=== PATIENT | female | born 1940 | race Caucasian/White ===

== ENCOUNTER 2020-12-30 20:10 | Inpatient (IN) | payer MEDICARE ==
--- NOTE | 2020-12-30 23:30 | Cat Scan Report ---
CT HEAD WITHOUT CONTRAST HISTORY: Weakness to BUE & BLE / neuro deficit COMPARISON: None TECHNIQUE: CT imaging of the head was performed in the axial, sagittal, and coronal projections and bone algori thm in axial projection in the soft tissue algorithm. All CT scans at this location are performed using CT dose reduction for ALARA by means of automated e xposure control. CONTRAST: None. FINDINGS: Cerebral and Cerebellar Hemispheres: Minimum atrophy left occipital lobe, previous ischemic event is suspected. No evidence of mass or mass effect. No midline shift. No acute hemorrhage. No acute cor tical infarction. No extra-axial fluid collection. Ventricles: Normal in size and configuration for age. Osseous Structures: No significant abnormality. Visualized Paranasal Sinuses: No significant abnormality. Additional Findings: None IMPRESSION: 1. No acute intracranial abnormality. NOTE: Acute infarct may not be visible by noncontrast CT. Signer Name: Ryan Alfaro MD Signed: 12/30/2020 11:26 PM Workstation Name: [id number]
[2020-12-31 00:12] LABS: Basophils # (Auto) 0.1 K/mm3 (0.0-0.1); Eosinophils # (Auto) 0.1 K/mm3 (0.0-0.4); Hematocrit 31.6 % (30.3-42.9); Hemoglobin 10.5 gm/dl (10.1-14.3); Lymphocytes # (Auto) 1.4 K/mm3 (1.2-5.4); Lymphocytes % (Auto) 14.4 % (13.4-35.0); Mean Corpuscular HGB Conc 33 % (30-34); Mean Corpuscular Volume 81 fl (79-97); Monocytes # (Auto) 0.7 K/mm3 (0.0-0.8); Monocytes % (Auto) 7.2 % (0.0-7.3); Platelet Count 371 K/mm3 (140-440); Red Cell Distribution Width 19.6 % (13.2-15.2)
[2020-12-31 00:20] LABS: INR 1.07 (0.87-1.13)
[2020-12-31 00:21] LABS: Partial Thromboplastin Time 35.2 Sec. (24.2-36.6)
[2020-12-31 00:22] LABS: Calcium 8.8 mg/dL (8.4-10.2)
[2020-12-31 00:26] LABS: Albumin 3.6 g/dL (3.9-5); Bilirubin,Direct 0.2 mg/dL (0-0.2)
--- NOTE | 2020-12-31 00:35 | XRay Report ---
CHEST 1 VIEW INDICATION: weakness COMPARISON: FINDINGS: SUPPORT DEVICES: None. HEART / MEDIASTINUM: No significant abnormality. LUNGS / PLEURA: No significant pulmonary or pleural abnormality. No pneumothorax. ADDITIONAL FINDINGS: IMPRESSION: 1. No acute cardiopulmonary disease Signer Name: Ryan Alfaro MD Signed: 12/31/2020 12:30 AM Workstation Name: [id number]
--- NOTE | 2020-12-31 00:44 | Emergency Department Report ---
ED General Adult HPI - General Chief complaint: Neuro Symptoms/Deficit Stated complaint: WEAKNESS Time Seen by Provider: 12/30/20 23:16 Source: patient Mode of arrival: Ambulatory Limitations: No Limitations - History of Present Illness Initial comments: The patient presents to the emergency department with a chief complaint of right arm and leg weakness that started 5 days ago. Patient states upon awakening 5 days ago there were not able to raise the right arm due to weakness. Patient states I am concerned that have had a stroke. Patient states that his right leg has come to the point where he is unable to walk on it due to the weakness. Patient also complains of having moments of slurred speech that has been intermittent since onset of the symptoms. Patient denies chest pain, shortness breath, or abdominal pain. -: Sudden, days(s) (5) Severity scale (0 -10): 0 Consistency: constant Improves with: none Worsens with: none Associated Symptoms: denies other symptoms Treatments Prior to Arrival: none - Related Data Allergies Allergy/AdvReac Type Severity Reaction Status Date / Time No Known Allergies Allergy Unverified 12/30/20 22:27 ED Review of Systems ROS: Stated complaint: WEAKNESS Other details as noted in HPI Comment: All other systems reviewed and negative Constitutional: denies: chills, fever Eyes: denies: eye pain, eye discharge, vision change ENT: denies: ear pain, throat pain Respiratory: denies: cough, shortness of breath, wheezing Cardiovascular: denies: chest pain, palpitations Endocrine: no symptoms reported Gastrointestinal: denies: abdominal pain, nausea, diarrhea Genitourinary: denies: urgency, dysuria, discharge Musculoskeletal: denies: back pain, joint swelling, arthralgia Skin: denies: rash, lesions Neurological: denies: headache, weakness, paresthesias Psychiatric: denies: anxiety, depression Hematological/Lymphatic: denies: easy bleeding, easy bruising ED Past Medical Hx - Past Medical History Previous Medical History?: Yes Hx Hypertension: Yes Additional medical history: glaucoma both eyes - Surgical History Past Surgical History?: No - Social History Smoking Status: Never Smoker Substance Use Type: None ED Physical Exam - General Limitations: No Limitations General appearance: alert, in no apparent distress - Head Head exam: Present: atraumatic, normocephalic - Eye Eye exam: Present: normal appearance - ENT ENT exam: Present: mucous membranes moist - Neck Neck exam: Present: normal inspection - Respiratory Respiratory exam: Present: normal lung sounds bilaterally. Absent: respiratory distress - Cardiovascular Cardiovascular Exam: Present: regular rate, normal rhythm. Absent: systolic murmur, diastolic murmur, rubs, gallop - GI/Abdominal GI/Abdominal exam: Present: soft, normal bowel sounds. Absent: distended, tenderness - Extremities Exam Extremities exam: Present: normal inspection - Back Exam Back exam: Present: normal inspection - Neurological Exam Neurological exam: Present: alert, oriented X3, other (Patient has 4 out of 5 strength of the right upper and lower extremity on exam against resistance) - Psychiatric Psychiatric exam: Present: normal affect, normal mood - Skin Skin exam: Present: warm, dry, intact, normal color. Absent: rash ED Course Vital Signs 12/30/20 22:27 Temperature 98.0 F Pulse Rate 59 L Respiratory 18 Rate Blood Pressure 137/63 O2 Sat by Pulse 100 Oximetry ED Medical Decision Making - Lab Data Result diagrams: 12/30/20 23:56 12/30/20 23:56 Lab Results 12/30/20 12/30/20 12/31/20 Range/Units 23:56 23:56 00:01 WBC 9.6 (4.5-11.0) K/mm3 RBC 3.90 (3.65-5.03) M/mm3 Hgb 10.5 (10.1-14.3) gm/dl Hct 31.6 (30.3-42.9) % MCV 81 (79-97) fl MCH 27 L (28-32) pg MCHC 33 (30-34) % RDW 19.6 H (13.2-15.2) % Plt Count 371 (140-440) K/mm3 Lymph % (Auto) 14.4 (13.4-35.0) % [place] % (Auto) 7.2 (0.0-7.3) % Eos % (Auto) 1.0 (0.0-4.3) % Baso % (Auto) 1.0 (0.0-1.8) % Lymph # (Auto) 1.4 (1.2-5.4) K/mm3 [place] # (Auto) 0.7 (0.0-0.8) K/mm3 Eos # (Auto) 0.1 (0.0-0.4) K/mm3 Baso # (Auto) 0.1 (0.0-0.1) K/mm3 Seg Neutrophils % 76.4 H (40.0-70.0) % Seg Neutrophils # 7.3 (1.8-7.7) K/mm3 PT 14.5 (12.2-14.9) Sec. INR 1.07 (0.87-1.13) APTT 35.2 (24.2-36.6) Sec. Sodium 137 (137-145) mmol/L Potassium 3.2 L (3.6-5.0) mmol/L Chloride 96.1 L (98-107) mmol/L Carbon Dioxide 28 (22-30) mmol/L Anion Gap 16 mmol/L BUN 28 H (7-17) mg/dL Creatinine 1.1 (0.6-1.2) mg/dL Estimated GFR 48 ml/min BUN/Creatinine Ratio 25 % Glucose 115 H (65-100) mg/dL Calcium 8.8 (8.4-10.2) mg/dL Phosphorus (2.5-4.5) mg/dL Magnesium (1.7-2.3) mg/dL Total Bilirubin (0.1-1.2) mg/dL Direct Bilirubin (0-0.2) mg/dL Indirect Bilirubin mg/dL AST (5-40) units/L ALT (7-56) units/L Alkaline Phosphatase (35-129) units/L Total Protein (6.3-8.2) g/dL Albumin (3.9-5) g/dL Albumin/Globulin Ratio % 12/31/ Range/Units 00:01 WBC (4.5-11.0) K/mm3 RBC (3.65-5.03) M/mm3 Hgb (10.1-14.3) gm/dl Hct (30.3-42.9) % MCV (79-97) fl MCH (28-32) pg MCHC (30-34) % RDW (13.2-15.2) % Plt Count (140-440) K/mm3 Lymph % (Auto) (13.4-35.0) % [place] % (Auto) (0.0-7.3) % Eos % (Auto) (0.0-4.3) % Baso % (Auto) (0.0-1.8) % Lymph # (Auto) (1.2-5.4) K/mm3 [place] # (Auto) (0.0-0.8) K/mm3 Eos # (Auto) (0.0-0.4) K/mm3 Baso # (Auto) (0.0-0.1) K/mm3 Seg Neutrophils % (40.0-70.0) % Seg Neutrophils # (1.8-7.7) K/mm3 PT (12.2-14.9) Sec. INR (0.87-1.13) APTT (24.2-36.6) Sec. Sodium (137-145) mmol/L Potassium (3.6-5.0) mmol/L Chloride (98-107) mmol/L Carbon Dioxide (22-30) mmol/L Anion Gap mmol/L BUN (7-17) mg/dL Creatinine (0.6-1.2) mg/dL Estimated GFR ml/min BUN/Creatinine Ratio % Glucose (65-100) mg/dL Calcium (8.4-10.2) mg/dL Phosphorus 3.30 (2.5-4.5) mg/dL Magnesium 2.00 (1.7-2.3) mg/dL Total Bilirubin 0.60 (0.1-1.2) mg/dL Direct Bilirubin 0.2 (0-0.2) mg/dL Indirect Bilirubin 0.4 mg/dL AST 33 (5-40) units/L ALT 56 (7-56) units/L Alkaline Phosphatase 233 H (35-129) units/L Total Protein 6.5 (6.3-8.2) g/dL Albumin 3.6 L (3.9-5) g/dL Albumin/Globulin Ratio 1.2 % - Radiology Data Radiology results: report reviewed - Medical Decision Making Results discussed with patient Critical care attestation.: If time is entered above; I have spent that time in minutes in the direct care of this critically ill patient, excluding procedure time. ED Disposition Clinical Impression: Right arm weakness Disposition: [id number] OP ADMIT IP TO THIS HOSP Is pt being admited?: Yes Does the pt Need Aspirin: Yes Condition: Fair Referrals: PRIMARY CARE,MD [Primary Care Provider] - 3-5 Days - Assessment Assessment Interval: Baseline - Level of Consciousness 1a. Level of Consciousness: alert/keenly responsive - LOC Questions 1b. LOC Questions: answers both correctly - LOC Command 1c. LOC Commands: performs tasks correctly - Best Gaze 2. Best Gaze: normal - Visual 3. Visual: no visual loss - Facial Palsy 4. Facial Palsy: normal symmetrical movement - Motor Arm 5a. Motor Arm Left: no drift 5b. Motor Arm Right: drift - Motor Leg 6a. Motor Leg Left: no drift 6b. Motor Leg Right: drift - Limb Ataxia 7. Limb Ataxia: present 1 limb - Sensory 8. Sensory: normal - Best Language 9. Best Language: no aphasia - Dysarthria 10. Dysarthria: normal - Extinction and Inattention 11. Extinction/Inattention: no abnormality - Scoring Total Score: 3 Stroke Severity: Minor Stroke
[2020-12-31] MEDS ORDERED: ASPIRIN 81 MG TAB CHEW PO ONE (02:00)
[2020-12-31] MEDS ORDERED: ALBUTEROL 2.5 MG/3 ML NEBU IH PRN (02:03)
[2020-12-31] MEDS ORDERED: ONDANSETRON 4 MG/2 ML INJ IV PRN (02:03)
[2020-12-31] MEDS ORDERED: ACETAMINOPHEN 325 MG TAB PO PRN (02:03)
[2020-12-31] MEDS ORDERED: hydrALAZINE 20 MG/1 ML INJ IV PRN (02:06)
--- NOTE | 2020-12-31 02:11 | History and Physical Report ---
History of Present Illness Date of examination: 12/31/20 Date of admission: 12/31/2020 Chief complaint: Right upper extremity and right leg weakness History of present illness: 80 years old female with past medical history of hypertension was brought to the emergency department with a chief complaint of right arm and leg weakness that started 5 days ago. Patient states upon awakening 5 days ago there were not able to raise the right arm due to weakness. Patient states I am concerned that have had a stroke. Patient states that his right leg has come to the point where he is unable to walk on it due to the weakness. Patient also complains of having moments of slurred speech that has been intermittent since onset of the symptoms. Patient denies chest pain, shortness breath, or abdominal pain. In the emergency room initial CT scan of the head shows no acute intracranial abnormality Past History Past Medical History: hypertension, other (Glaucoma both eyes) Medications and Allergies Allergies Allergy/AdvReac Type Severity Reaction Status Date / Time No Known Allergies Allergy Unverified 12/30/20 22:27 Review of Systems Constitutional: weakness Neurological: weakness, other (Weakness of the right upper extremity and right leg) Exam - Constitutional Vitals: Temp Pulse Resp BP Pulse Ox 98.0 F 59 L 18 137/63 100 12/30/20 22:27 12/30/20 22:27 12/30/20 22:27 12/30/20 22:27 12/30/20 22:27 General appearance: Present: no acute distress, well-nourished - EENT Eyes: Present: PERRL ENT: hearing intact, clear oral mucosa - Neck Neck: Present: supple, normal ROM - Respiratory Respiratory effort: normal Respiratory: bilateral: CTA - Cardiovascular Heart Sounds: Present: S1 & S2. Absent: rub, click - Extremities Extremities: pulses symmetrical, No edema Peripheral Pulses: within normal limits - Abdominal General gastrointestinal: Present: soft, non-tender, non-distended, normal bowel sounds Female genitourinary: Present: normal - Integumentary Integumentary: Present: clear, warm, dry - Musculoskeletal Musculoskeletal: gait normal, strength equal bilaterally - Psychiatric Psychiatric: appropriate mood/affect, intact judgment & insight - Neurologic Neurologic: CNII-XII intact, other (alert, oriented X3, other (Patient has 4 out of 5 strength of the right upper and lower extremity on exam against resistance)) Results - Labs CBC & Chem 7: 12/30/20 23:56 12/30/20 23:56 Labs: Laboratory Last Values WBC 9.6 K/mm3 (4.5-11.0) 12/30/20 23:56 RBC 3.90 M/mm3 (3.65-5.03) 12/30/20 23:56 Hgb 10.5 gm/dl (10.1-14.3) 12/30/20 23:56 Hct 31.6 % (30.3-42.9) 12/30/20 23:56 MCV 81 fl (79-97) 12/30/20 23:56 MCH 27 pg (28-32) L 12/30/20 23:56 MCHC 33 % (30-34) 12/30/20 23:56 RDW 19.6 % (13.2-15.2) H 12/30/20 23:56 Plt Count 371 K/mm3 (140-440) 12/30/20 23:56 Lymph % (Auto) 14.4 % (13.4-35.0) 12/30/20 23:56 [place] % (Auto) 7.2 % (0.0-7.3) 12/30/20 23:56 Eos % (Auto) 1.0 % (0.0-4.3) 12/30/20 23:56 Baso % (Auto) 1.0 % (0.0-1.8) 12/30/20 23:56 Lymph # (Auto) 1.4 K/mm3 (1.2-5.4) 12/30/20 23:56 [place] # (Auto) 0.7 K/mm3 (0.0-0.8) 12/30/20 23:56 Eos # (Auto) 0.1 K/mm3 (0.0-0.4) 12/30/20 23:56 Baso # (Auto) 0.1 K/mm3 (0.0-0.1) 12/30/20 23:56 Seg Neutrophils % 76.4 % (40.0-70.0) H 12/30/20 23:56 Seg Neutrophils # 7.3 K/mm3 (1.8-7.7) 12/30/20 23:56 PT 14.5 Sec. (12.2-14.9) 12/31/20 00:01 INR 1.07 (0.87-1.13) 12/31/20 00:01 APTT 35.2 Sec. (24.2-36.6) 12/31/20 00:01 Sodium 137 mmol/L (137-145) 12/30/20 23:56 Potassium 3.2 mmol/L (3.6-5.0) L 12/30/20 23:56 Chloride 96.1 mmol/L (98-107) L 12/30/20 23:56 Carbon Dioxide 28 mmol/L (22-30) 12/30/20 23:56 Anion Gap 16 mmol/L 12/30/20 23:56 BUN 28 mg/dL (7-17) H 12/30/20 23:56 Creatinine 1.1 mg/dL (0.6-1.2) 12/30/20 23:56 Estimated GFR 48 ml/min 12/30/20 23:56 BUN/Creatinine Ratio 25 % 12/30/20 23:56 Glucose 115 mg/dL (65-100) H 12/30/20 23:56 Calcium 8.8 mg/dL (8.4-10.2) 12/30/20 23:56 Phosphorus 3.30 mg/dL (2.5-4.5) 12/31/20 00:01 Magnesium 2.00 mg/dL (1.7-2.3) 12/31/20 00:01 Total Bilirubin 0.60 mg/dL (0.1-1.2) 12/31/20 00:01 Direct Bilirubin 0.2 mg/dL (0-0.2) 12/31/20 00:01 Indirect Bilirubin 0.4 mg/dL 12/31/20 00:01 AST 33 units/L (5-40) 12/31/20 00:01 ALT 56 units/L (7-56) 12/31/20 00:01 Alkaline Phosphatase 233 units/L (35-129) H 12/31/20 00:01 Total Protein 6.5 g/dL (6.3-8.2) 12/31/20 00:01 Albumin 3.6 g/dL (3.9-5) L 12/31/20 00:01 Albumin/Globulin Ratio 1.2 % 12/31/20 00:01 - Imaging and Cardiology CT Scan - head: report reviewed Assessment and Plan VTE prophylaxis?: Chemical Plan of care discussed with patient/family: Yes - Patient Problems (1) CVA (cerebral vascular accident) Current Visit: Yes Status: Acute Plan to address problem: Admit the patient to the medical telemetry. Aspirin 325 mg p.o. daily. Lipitor 40 mg p.o. nightly. MRI of the brain and MRA of the brain and neck with and without contrast. Echocardiogram. will consult PT OT any speech evaluation. Consult neurology in the morning if needed (2) Right arm weakness Current Visit: Yes Status: Acute Plan to address problem: Aspirin 325 mg p.o. daily. Lipitor 40 mg p.o. nightly. MRI of the brain and M RA of the brain and neck with and without contrast. Echocardiogram. will consult PT OT any speech evaluation. Consult neurology in the morning if needed (3) Hypertension Current Visit: Yes Status: Acute Plan to address problem: Hydralazine 10 mg IV every 6 hours as needed. We will monitor the blood p ressure closely. We will continue the home medication (4) DVT prophylaxis Current Visit: Yes Status: Acute Plan to address problem: Heparin 5000 units subcu every 8 hours for DVT prophylaxis. Pepcid 20 mg IV twice daily for GI prophylaxis. Patient is a full code
[2020-12-31 04:35] LABS: Bilirubin,Urine NEG (Negative); Blood,Urine NEG (Negative); Color,Urine Yellow (Yellow); Mucus,Urine FEW /HPF; Protein,Urine <15 mg/dL mg/dL (Negative); WBC,Urine < 1.0 /HPF (0.0-6.0)
[2020-12-31] MEDS: D5W/0.9% NACL 1,000 ML IV SCH (05:55)
[2020-12-31] MEDS: HEPARIN 5,000 UNIT/1 ML VIAL SUB-Q SCH ×3 (05:56→22:15)
[2020-12-31] MEDS: IPRATROPIUM/ALBUTEROL SULFATE 3 ML AMPUL.NEB IH SCH ×3 (08:05→20:30)
--- NOTE | 2020-12-31 12:46 | Magnetic Resonance Report ---
MRA HEAD WITHOUT CONTRAST HISTORY: Right-sided arm and leg weakness. COMPARISON: none TECHNIQUE: Routine MRA of the head performed. 3-D/MIP reformats postprocessed. CONTRAST: none FINDINGS: MRA HEAD: OVERVIEW: There is no evidence of intracranial stenosis or large vessel occlusion. There is no eviden ce of aneurysm or other vascular malformation. Intracranial vertebral arteries: Normal and symmetrical vertebral arteries both contribute to the bas ilar artery origin. Basilar artery: Basilar artery has an unremarkable appearance. Posterior cerebral arteries: Normal and symmetrical appearing posterior cerebral arteries are identif ied. Intracranial internal carotid arteries: No significant abnormality. Anterior cerebral arteries: Bilaterally symmetrical A1 segments of the anterior cerebral arteries are demonstrated. No abnormalities are seen along the course of the A2 segments or visualized pericallos al branches. Middle cerebral arteries: Normal and symmetrical M1 segments are demonstrated bilaterally. No abnorma lities are seen on evaluation of the insular or opercular branches of the middle cerebral arteries. IMPRESSION: 1. No significant abnormalities are identified on MRA head. Signer Name: Gustavo Ames MD Signed: 12/31/2020 12:42 PM Workstation Name: [id number]
--- NOTE | 2020-12-31 12:51 | Magnetic Resonance Report ---
MRI BRAIN WITHOUT CONTRAST INDICATION / CLINICAL INFORMATION: Right arm and leg weakness. TECHNIQUE: Multiplanar, multisequence MR images of the brain were obtained. COMPARISON: Head CT 12/31/2011 FINDINGS: BRAIN / INTRACRANIAL CONTENTS: Age-related parenchymal volume loss is demonstrated. Dilatation of the cortical sulci and ventricular system is noted in keeping with the patient's stated age of 80 years. An occasional, scattered periventricular, deep white matter and subcortical white matter hyperintens ity is noted consistent with mild microvascular ischemic changes. Dilated perivascular spaces are pre sent in a bilateral gangliocapsular distribution. In addition there is a cluster of dilated perivascu lar spaces in the region of the head of the caudate nucleus on the right and in the subinsular region on the right. There is no mass effect. No evidence of intracranial hemorrhage or extra-axial fluid c ollection is seen. There is no indication of remote cortical infarction. Diffusion weighted scans are negative. There is no indication of acute ischemic injury. The brainstem and cerebellum have an unremarkable appearance. CRANIOCERVICAL JUNCTION: No abnormalities are identified at the craniocervical junction. VASCULAR FLOW-VOIDS: Normal flow-voids are present within the major intracranial vessels. ORBITS: The orbits have an unremarkable appearance. SINUSES / MASTOIDS: There is no indication of inflammatory disease in the paranasal sinuses or mastoi d air cells. Following administration of intravenous contrast material enhancement of normal vascular structures i s demonstrated. No areas of abnormal contrast enhancement are identified. IMPRESSION: 1. Age related involutional changes. No additional intracranial abnormality. 2. No evidence of recent or remote infarction. Signer Name: Gustavo Ames MD Signed: 12/31/2020 12:47 PM Workstation Name: [id number]
[2020-12-31] MEDS: FAMOTIDINE 20 MG/2 ML INJ IV SCH ×2 (13:31→22:15)
[2020-12-31] MEDS: ASPIRIN 325 MG TAB PO SCH (13:31)
[2021-01-01] MEDS: D5W/0.9% NACL 1,000 ML IV SCH ×2 (03:59→15:38)
[2021-01-01 06:11] LABS: Basophils # (Auto) 0.1 K/mm3 (0.0-0.1); Eosinophils # (Auto) 0.1 K/mm3 (0.0-0.4); Eosinophils % (Auto) 1.6 % (0.0-4.3); Hematocrit 28.6 % (30.3-42.9); Hemoglobin 9.4 gm/dl (10.1-14.3); Lymphocytes # (Auto) 1.3 K/mm3 (1.2-5.4); Lymphocytes % (Auto) 15.7 % (13.4-35.0); Mean Corpuscular HGB Conc 33 % (30-34); Mean Corpuscular Volume 81 fl (79-97); Monocytes # (Auto) 0.7 K/mm3 (0.0-0.8); Monocytes % (Auto) 8.1 % (0.0-7.3); Platelet Count 321 K/mm3 (140-440); Red Blood Count 3.55 M/mm3 (3.65-5.03); Red Cell Distribution Width 19.2 % (13.2-15.2)
[2021-01-01] MEDS: HEPARIN 5,000 UNIT/1 ML VIAL SUB-Q SCH ×3 (06:15→21:18)
--- NOTE | 2021-01-01 06:29 | Event Note ---
Date: 12/31/20 Patient seen and evaluated Admitted in the early hours Brain MRI Age-related involutional changes No additional intracranial abnormalities No evidence of recent or remote infarction MRA Hand No significant abnormalities are identified on MRA head patient admitted for acute CVA with right hemiparesis Patient evaluated Patient has 3/5 power in the right upper extremity and right lower extremity Body Repairer is good MRA and MRI of the brain negative for infarct Neurology consult requested Recent CVA not confirmed by MRI
[2021-01-01 06:39] LABS: Calcium 8.4 mg/dL (8.4-10.2); Chol/HDL Ratio 2.57 %
[2021-01-01] MEDS ORDERED: POTASSIUM CHLORIDE ER 20 MEQ TAB PO NR (08:15)
--- NOTE | 2021-01-01 09:06 | Consultation ---
History of Present Illness Consult date: 01/01/21 Reason for Consult: right side weakness History of present illness: Right upper extremity and right leg weakness History of present illness: 80 years old female with past medical history of hypertension was brought to the emergency department with a chief complaint of right arm and leg weakness that started 5 days ago according to pt. problem may be on going since mid September affected right and to lesser extent left upper extremity !. Patient states upon awakening 5 days ago there were not able to raise the right arm due to weakness. Patient states I am concerned that have had a stroke. Patient states that his right leg has come to the point where he is unable to walk on it due to the weakness. Patient also complains of having moments of slurred speech that has been intermittent since onset of the symptoms. Patient denies chest pain, shortness breath, or abdominal pain. In the emergency room initial CT scan of the head shows no acute intracranial abnormality Brain MRI today is unremarkable for acute event Past History Past Medical History: hypertension, other (Glaucoma both eyes) Medications and Allergies Allergies Allergy/AdvReac Type Severity Reaction Status Date / Time No Known Allergies Allergy Unverified 12/30/20 22:27 Review of Systems Constitutional: weakness Neurological: weakness, other (Weakness of the right upper extremity and right leg) Past History Past Medical History: hypertension, other (Glaucoma both eyes) Medications and Allergies Allergies Allergy/AdvReac Type Severity Reaction Status Date / Time No Known Allergies Allergy Unverified 12/30/20 22:27 Home Medications Medication Instructions Recorded Confirmed Last Taken Type Chlorthalidone [Thalitone] 12.5 mg PO QDAY 12/31/20 12/31/20 12/30/20 History Fluticasone [Flonase] 1 spray NS QDAY 12/31/20 12/31/20 12/30/20 History Iron [Iron 18 MG TAB] 65 mg PO DAILY 12/31/20 12/31/20 12/30/20 History Montelukast [Singulair] 10 mg PO QPM 12/31/20 12/31/20 12/30/20 History Omeprazole 20 mg PO DAILY 12/31/20 12/31/20 12/30/20 History Potassium Chloride [K-Dur] 20 meq PO QDAY 12/31/20 12/31/20 12/30/20 History Pravastatin Sodium [Pravastatin] 20 mg PO QHS 12/31/20 12/31/20 12/30/20 History atenoloL [Tenormin] 50 mg PO DAILY 12/31/20 12/31/20 12/30/20 History Active Meds: Active Medications Acetaminophen (Acetaminophen 325 Mg Tab) 650 mg PO Q4H PRN PRN Reason: Pain MILD(1-3)/Fever >100.5/TAPIA Albuterol (Albuterol 2.5 Mg/3 Ml Nebu) 2.5 mg IH Q3HRT PRN PRN Reason: Shortness Of Breath Aspirin (Aspirin 325 Mg Tab) 325 mg PO QDAY [facility] Last Admin: 12/31/20 13:31 Dose: 325 mg Documented by: Atorvastatin Calcium (Atorvastatin 40 Mg Tab) 40 mg PO QHS [facility] Last Admin: 12/31/20 22:15 Dose: 40 mg Documented by: Famotidine (Famotidine 20 Mg/2 Ml Inj) 20 mg IV BID [facility] Last Admin: 12/31/20 22:15 Dose: 20 mg Documented by: Heparin Sodium (Porcine) (Heparin 5,000 Unit/1 Ml Vial) 5,000 unit SUB-Q Q8HR [facility] Last Admin: 01/01/21 06:15 Dose: 5,000 unit Documented by: Hydralazine HCl (Hydralazine 20 Mg/1 Ml Inj) 10 mg IV Q6H PRN PRN Reason: htn Dextrose/Sodium Chloride (D5ns) 1,000 mls @ 100 mls/hr IV DIRECT [facility] Last Admin: 01/01/21 03:59 Dose: 100 mls/hr Documented by: Potassium Chloride (Kcl 10meq/100ml) 10 meq in 100 mls @ 100 mls/hr IV Q1H [facility] Stop: 01/01/21 10:59 Ondansetron HCl (Ondansetron 4 Mg/2 Ml Inj) 4 mg IV Q8H PRN PRN Reason: Nausea And Vomiting Potassium Chloride (Potassium Chloride Er 20 Meq Tab) 40 meq PO ONCE@0815 NR Stop: 01/01/21 11:00 Sodium Chloride (Sodium Chloride 0.9% 10 Ml Flush Syringe) 10 ml IV BID [facility] Last Admin: 12/31/20 22:16 Dose: 10 ml Documented by: Sodium Chloride (Sodium Chloride 0.9% 10 Ml Flush Syringe) 10 ml IV PRN PRN PRN Reason: LINE FLUSH Physical Examination - Vital Signs Vital Signs: Vital Signs Temp Pulse Resp BP Pulse Ox 98.0 F 59 L 18 137/63 100 12/30/20 22:27 12/30/20 22:27 12/30/20 22:27 12/30/20 22:27 12/30/20 22:27 - Constitutional General appearance: comfortable - EENT EENT: Present: PERRL, mucous membranes moist - Respiratory Respiratory: Present: chest non-tender, lungs clear - Cardiovascular Cardiovascular: Present: regular rate, normal S1, normal S2 Extremities: Present: no peripheral edema bilatateraly, no clubbing, cyanosis - Gastrointestinal Gastrointestinal: Present: normoactive bowel sounds - Integumentary Integumentary: Present: normal - Neurologic Cranial nerve examination: PERRL, EOMI, intact Speech examination: intact Sensorimotor examination: intact, other (he is with give away weakness right upper more than left side weakness , he drops his right arm to his side but no pronator drift is noted no clear facial asymmetry is noted ) - Psychiatric Psychiatric: Present: other (mental status he is alert disoriented to place or date had difficulty with calculation remeber name of president , no aphasia is noted) Results - Laboratory Findings CBC and BMP: 01/01/21 05:46 01/01/21 05:46 Abnormal Lab Findings: Abnormal Labs 12/30/20 12/30/20 12/31/20 23:56 23:56 00:01 RBC Hgb Hct MCH 27 L RDW 19.6 H [place] % (Auto) Seg Neutrophils % 76.4 H Potassium 3.2 L Chloride 96.1 L BUN 28 H Glucose 115 H Alkaline Phosphatase 233 H Albumin 3.6 L 01/01/21 01/01/21 05:46 05:46 RBC 3.55 L Hgb 9.4 L Hct 28.6 L MCH 26 L RDW 19.2 H [place] % (Auto) 8.1 H Seg Neutrophils % 73.6 H Potassium 2.8 L* Chloride BUN 19 H Glucose 126 H Alkaline Phosphatase Albumin Assessment and Plan Assessment and Plan VTE prophylaxis?: Chemical Plan of care discussed with patient/family: Yes - Patient Problems #Right side weakness as per pt. > left since September -exam is suggestive of functional impairmet with no clear weakness is noted -CT brain ,MRI brain are unremarkable,MRA unremarkable -LDL#60 on Lipitor 40 mG -eCHO WITH ef#60-65% #Underlying mild dementia -check TSH,B12 -No driving -PT therapy - # Right arm weakness - Functional impairment with no limited weakness is noted # Hypertension -Hydralazine 10 mg IV every 6 hours as needed. We will monitor the blood pressure closely. We will continue the home medication # DVT prophylaxis -Heparin 5000 units subcu every 8 hours for DVT prophylaxis. - Pepcid 20 mg IV twice daily for GI prophylaxis. -Patient is a full code PLAN 1-Assurance 2-PT therapy 3- Home medications 4- Neurology follow up? psychiatry foolow up will sig off
[2021-01-01] MEDS: ASPIRIN 325 MG TAB PO SCH (09:44)
[2021-01-01] MEDS: FAMOTIDINE 20 MG/2 ML INJ IV SCH (09:44)
[2021-01-01] MEDS: POTASSIUM CHLORIDE 10 MEQ 10 MEQ/100 ML BAG IV SCH ×2 (09:44→10:45)
[2021-01-01] MEDS: PANTOPRAZOLE 20 MG TAB PO SCH (13:48)
[2021-01-01] MEDS: FLUTICASONE PROPIONATE NASAL SPRAY 16 GM NS SCH (14:21)
--- NOTE | 2021-01-01 15:34 | Progress Note ---
Assessment and Plan Assessment and plan: 80 years old female with past medical history of hypertension was brought to the emergency department with a chief complaint of right arm and leg weakness that started 5 days ago. Patient states upon awakening 5 days ago there were not able to raise the right arm due to weakness. Patient states I am concerned that have had a stroke. Patient states that his right leg has come to the point where he is unable to walk on it due to the weakness. Patient also complains of having moments of slurred speech that has been intermittent since onset of the symptoms. Patient denies chest pain, shortness breath, or abdominal pain. In the emergency room initial CT scan of the head shows no acute intracranial abnormality Imaging studies including MRI and MRA of the head are negative for acute CVA. Neurology input noted likely functional impairment. Continue Lipitor 40mg daily. Possible underlying mild dementia will await TSH and B12. Recommended no driving. Right side weakness as per pt. > left since September -exam is suggestive of functional impairmet with no clear weakness is noted -CT brain ,MRI brain are unremarkable,MRA unremarkable -LDL#60 on Lipitor 40 mG -eCHO WITH ef#60-65% Underlying mild dementia -check TSH,B12 -No driving -PT therapy Chronic debility PT OT on discharge right arm weakness - Functional impairment with no limited weakness is noted Hypertension -Hydralazine 10 mg IV every 6 hours as needed. We will monitor the blood pressure closely. We will continue the home medication DVT prophylaxis -Heparin 5000 units subcu every 8 hours for DVT prophylaxis. - Pepcid 20 mg IV twice daily for GI prophylaxis. -Patient is a full code Anticipate discharge in a.m. with home health History Interval history: Patient seen and examined with intermittent delirium. Hospitalist Physical - Physical exam Narrative exam: VITAL SIGNS: Reviewed. GENERAL: The patient appears normally developed, Vital signs as documented. HEAD: No signs of head trauma. EYES: Pupils are equal. Extraocular motions intact. EARS: Hearing grossly intact. MOUTH: Oropharynx is normal. NECK: No adenopathy, no JVD. CHEST: Chest with clear breath sounds bilaterally. No wheezes, rales, or rhonchi. CARDIAC: Regular rate and rhythm. S1 and S2, without murmurs, gallops, or rubs. VASCULAR: No Edema. Peripheral pulses normal and equal in all extremities. ABDOMEN: Soft, non tender and non distended. No rebound or guarding, and no masses palpated. Bowel Sounds normal. MUSCULOSKELETAL chronic left lower extremity lymphedema. Extremities without clubbing, cyanosis. NEUROLOGIC EXAM: Alert and oriented x 2 right upper extremity and left lower extremity weakness motor strength of 2/5. Speech normal. Poor historian fol lows commands. PSYCHIATRIC: Mood normal. SKIN: Chronic venous changes ulceration on the right knee brace on the left. Detail exam as documented in skin assessment - Constitutional Vitals: Temp Pulse Resp BP Pulse Ox 98.0 F 77 16 123/55 97 01/01/21 11:52 01/01/21 11:52 01/01/21 11:52 01/01/21 11:52 01/01/21 11:52 General appearance: Present: no acute distress, well-nourished HEART Score - HEART Score Troponin: Troponin T 0.010 ng/mL (0.00-0.029) 12/31/20 05:27 Results - Labs CBC & Chem 7: 01/01/21 05:46 01/01/21 05:46 Labs: Laboratory Last Values WBC 8.3 K/mm3 (4.5-11.0) 01/01/21 05:46 RBC 3.55 M/mm3 (3.65-5.03) L 01/01/21 05:46 Hgb 9.4 gm/dl (10.1-14.3) L 01/01/21 05:46 Hct 28.6 % (30.3-42.9) L 01/01/21 05:46 MCV 81 fl (79-97) 01/01/21 05:46 MCH 26 pg (28-32) L 01/01/21 05:46 MCHC 33 % (30-34) 01/01/21 05:46 RDW 19.2 % (13.2-15.2) H 01/01/21 05:46 Plt Count 321 K/mm3 (140-440) 01/01/21 05:46 Lymph % (Auto) 15.7 % (13.4-35.0) 01/01/21 05:46 [place] % (Auto) 8.1 % (0.0-7.3) H 01/01/21 05:46 Eos % (Auto) 1.6 % (0.0-4.3) 01/01/21 05:46 Baso % (Auto) 1.0 % (0.0-1.8) 01/01/21 05:46 Lymph # (Auto) 1.3 K/mm3 (1.2-5.4) 01/01/21 05:46 [place] # (Auto) 0.7 K/mm3 (0.0-0.8) 01/01/21 05:46 Eos # (Auto) 0.1 K/mm3 (0.0-0.4) 01/01/21 05:46 Baso # (Auto) 0.1 K/mm3 (0.0-0.1) 01/01/21 05:46 Seg Neutrophils % 73.6 % (40.0-70.0) H 01/01/21 05:46 Seg Neutrophils # 6.1 K/mm3 (1.8-7.7) 01/01/21 05:46 PT 14.5 Sec. (12.2-14.9) 12/31/20 00:01 INR 1.07 (0.87-1.13) 12/31/20 00:01 APTT 35.2 Sec. (24.2-36.6) 12/31/20 00:01 Sodium 141 mmol/L (137-145) 01/01/21 05:46 Potassium 2.8 mmol/L (3.6-5.0) L* 01/01/21 05:46 Chloride 103.3 mmol/L (98-107) 01/01/21 05:46 Carbon Dioxide 24 mmol/L (22-30) 01/01/21 05:46 Anion Gap 17 mmol/L 01/01/21 05:46 BUN 19 mg/dL (7-17) H 01/01/21 05:46 Creatinine 1.0 mg/dL (0.6-1.2) 01/01/21 05:46 Estimated GFR 54 ml/min 01/01/21 05:46 BUN/Creatinine Ratio 19 % 01/01/21 05:46 Glucose 126 mg/dL (65-100) H 01/01/21 05:46 Calcium 8.4 mg/dL (8.4-10.2) 01/01/21 05:46 Phosphorus 3.30 mg/dL (2.5-4.5) 12/31/20 00:01 Magnesium 2.00 mg/dL (1.7-2.3) 12/31/20 00:01 Total Bilirubin 0.60 mg/dL (0.1-1.2) 12/31/20 00:01 Direct Bilirubin 0.2 mg/dL (0-0.2) 12/31/20 00:01 Indirect Bilirubin 0.4 mg/dL 12/31/20 00:01 AST 33 units/L (5-40) 12/31/20 00:01 ALT 56 units/L (7-56) 12/31/20 00:01 Alkaline Phosphatase 233 units/L (35-129) H 12/31/20 00:01 Troponin T 0.010 ng/mL (0.00-0.029) 12/31/20 05:27 Total Protein 6.5 g/dL (6.3-8.2) 12/31/20 00:01 Albumin 3.6 g/dL (3.9-5) L 12/31/20 00:01 Albumin/Globulin Ratio 1.2 % 12/31/20 00:01 Triglycerides 63 mg/dL (2-149) 01/01/21 05:46 Cholesterol 108 mg/dL (50-199) 01/01/21 05:46 LDL Cholesterol Direct 60 mg/dL (50-130) 01/01/21 05:46 HDL Cholesterol 42 mg/dL (40-59) 01/01/21 05:46 Cholesterol/HDL Ratio 2.57 % 01/01/21 05:46 Urine Color Yellow (Yellow) 12/31/20 04:15 Urine Turbidity Clear (Clear) 12/31/20 04:15 Urine pH 5.0 (5.0-7.0) 12/31/20 04:15 Ur Specific [place] 1.013 (1.003-1.030) 12/31/20 04:15 Urine Protein <15 mg/dl mg/dL (Negative) 12/31/20 04:15 Urine Glucose (UA) Neg mg/dL (Negative) 12/31/20 04:15 Urine Ketones Neg mg/dL (Negative) 12/31/20 04:15 Urine Blood Neg (Negative) 12/31/20 04:15 Urine Nitrite Neg (Negative) 12/31/20 04:15 Urine Bilirubin Neg (Negative) 12/31/20 04:15 Urine Urobilinogen 2.0 mg/dL (<2.0) 12/31/20 04:15 Ur Leukocyte Esterase Neg (Negative) 12/31/20 04:15 Urine WBC (Auto) < 1.0 /HPF (0.0-6.0) 12/31/20 04:15 Urine RBC (Auto) 1.0 /HPF (0.0-6.0) 12/31/20 04:15 U Epithel Cells (Auto) < 1.0 /HPF (0-13.0) 12/31/20 04:15 Urine Mucus Few /HPF 12/31/20 04:15 Coronavirus (PCR) Negative (Negative) 01/01/21 09:48 [place]/IV: Voiding Method Bedpan Active Medications - Current Medications Current Medications: Generic Name Dose Route Start Last Admin Trade Name Freq PRN Reason Stop Dose Admin Acetaminophen 650 mg 12/31/20 02:03 Acetaminophen 325 Mg Tab PO Q4H PRN Pain MILD(1-3)/Fever >100.5/TAPIA Albuterol 2.5 mg 12/31/20 02:03 Albuterol 2.5 Mg/3 Ml Nebu IH Q3HRT PRN Shortness Of Breath Aspirin 325 mg 12/31/20 10:00 01/01/21 09:44 Aspirin 325 Mg Tab PO 325 mg QDAY ANAMIKA Administration Atenolol 50 mg 01/02/21 10:00 Atenolol 50 Mg Tab PO DAILY ANAMIKA Atorvastatin Calcium 40 mg 12/31/20 22:00 12/31/20 22:15 Atorvastatin 40 Mg Tab PO 40 mg QHS ANAMIKA Administration Chlorthalidone 12.5 mg 01/02/21 10:00 Chlorthalidone 25 Mg Tab PO QDAY ANAMIKA Ferrous Sulfate 325 mg 01/02/21 10:00 Ferrous Sulfate 325 Mg Tab PO DAILY ANAMIKA Fluticasone Propionate 50 mcg 01/01/21 14:00 01/01/21 14:21 Fluticasone Propionate Nasal [place] 16 Gm NS 50 mcg QDAY ANAMIKA Administration Heparin Sodium (Porcine) 5,000 unit 12/31/20 06:00 01/01/21 13:48 Heparin 5,000 Unit/1 Ml Vial SUB-Q 5,000 unit Q8HR ANAMIKA Administration Hydralazine HCl 10 mg 12/31/20 02:06 Hydralazine 20 Mg/1 Ml Inj IV Q6H PRN htn Dextrose/Sodium Chloride 1,000 mls @ 100 mls/hr 12/31/20 03:00 01/01/21 03:59 D5ns IV 100 mls/hr DIRECT ANAMIKA Administration Montelukast Sodium 10 mg 01/01/21 18:00 Montelukast 10 Mg Tab PO QPM ANAMIKA Ondansetron HCl 4 mg 12/31/20 02:03 Ondansetron 4 Mg/2 Ml Inj IV Q8H PRN Nausea And Vomiting Pantoprazole Sodium 20 mg 01/01/21 14:00 01/01/21 13:48 Pantoprazole 20 Mg Tab PO 20 mg QDAY ANAMIKA Administration Potassium Chloride 20 meq 01/02/21 10:00 Potassium Chloride Er 10 Meq Tab PO QDAY ANAMIKA Sodium Chloride 10 ml 12/31/20 10:00 01/01/21 09:45 Sodium Chloride 0.9% 10 Ml Flush Syringe IV Not Given BID ANAMIKA Sodium Chloride 10 ml 12/31/20 02:03 Sodium Chloride 0.9% 10 Ml Flush Syringe IV PRN PRN LINE FLUSH Nutrition/Malnutrition Assess - Dietary Evaluation Nutrition/Malnutrition Findings: Nutrition Notes Start: 12/31/20 10:46 Freq: Status: Active Protocol: Document 01/01/21 12:02 CW (Rec: 01/01/21 12:04 CW [id number]) Nutrition Notes Initial or Follow up Assessment Current Diagnosis Hypertension,Stroke Other Pertinent Diagnosis leg wound Current Diet NPO Labs/Tests K 2.8 BUN 19 Pertinent Medications D5NS at 100 ml/hr Height 6 ft Weight 91 kg [place] Body Weight (kg) 72.72 BMI 27.1 Weight Status Appropriate Subjective/Other Information F/U for intakes. Pt remains NPO at this time. Pt did not answer phone x2 for nutritional interview. RN reports that pt failed bedside swallow eval and is awaiting speech eval from [employer]. Percent of energy/protein needs met: 0%/0% Burn Absent Trauma Absent Difficulty In Swallowing Current % PO Negligible Minimum of two criteria No Fluid Accumulation Moderate to Severe (severe) #2 Nutrition Diagnosis Increased nutrient needs ( specify in comment below) Comments: protein needs Etiology wound healing As Evidenced by Signs and Symptoms Pt has LE wound #1 Nutrition Diagnosis Inadequate oral intake Etiology dysphagia As Evidenced by Signs and Symptoms Pt failed beside swallow eval Is patient on ventilator? No Is Patient Ambulatory and/or Out of Bed No REE-([facility]-confined to bed) [phone] Calculation Used for Recommendations [facility] Additional Notes protein needs: 114 - 137g (1. 25 - 1.5g/kgBW) fluid needs: 1 ml/kcal Nutrition Intervention Change Diet Order: diet advancement when medically feasible or TF if necessary Nutrition Support: Promote 1.0 at 75 ml/hr with a free water flush of 50 ml/hr Kcal 1,800 Protein (gm) 113 Fluid (mL) 1,510 Goal #1 diet advancement Anticipated Discharge Needs: unable to determine at this time Follow-Up By: 01/04/21 Additional Comments F/U for speech evaluation and diet advancement
[2021-01-01] MEDS ORDERED: diphenhydrAMINE 25 MG CAP PO PRN (15:45)
[2021-01-01] MEDS: MONTELUKAST 10 MG TAB PO SCH (17:19)
[2021-01-02] MEDS: HEPARIN 5,000 UNIT/1 ML VIAL SUB-Q SCH ×3 (05:45→21:42)
[2021-01-02 08:17] LABS: Basophils # (Auto) 0.1 K/mm3 (0.0-0.1); Basophils % (Auto) 0.8 % (0.0-1.8); Eosinophils # (Auto) 0.5 K/mm3 (0.0-0.4); Eosinophils % (Auto) 5.5 % (0.0-4.3); Hematocrit 29.9 % (30.3-42.9); Hemoglobin 9.9 gm/dl (10.1-14.3); Lymphocytes # (Auto) 1.2 K/mm3 (1.2-5.4); Lymphocytes % (Auto) 13.8 % (13.4-35.0); Mean Corpuscular HGB Conc 33 % (30-34); Mean Corpuscular Volume 81 fl (79-97); Monocytes # (Auto) 0.7 K/mm3 (0.0-0.8); Monocytes % (Auto) 7.8 % (0.0-7.3); Platelet Count 327 K/mm3 (140-440); Red Blood Count 3.69 M/mm3 (3.65-5.03); Red Cell Distribution Width 19.2 % (13.2-15.2)
[2021-01-02 08:32] LABS: Alanine Aminotransferase 31 units/L (7-56); Albumin 2.9 g/dL (3.9-5); BUN/Creatinine Ratio 18; Blood Urea Nitrogen 16 mg/dL (7-17); Calcium 8.4 mg/dL (8.4-10.2); Hemolysis Index 0
[2021-01-02] MEDS: PANTOPRAZOLE 20 MG TAB PO SCH (09:19)
[2021-01-02] MEDS: POTASSIUM CHLORIDE ER 10 MEQ TAB PO SCH (09:19)
[2021-01-02] MEDS: FERROUS SULFATE 325 MG TAB PO SCH (09:19)
[2021-01-02] MEDS: atenoloL 50 MG TAB PO SCH (09:19)
[2021-01-02] MEDS: ASPIRIN 325 MG TAB PO SCH (09:20)
[2021-01-02] MEDS: CHLORTHALIDONE 25 MG TAB PO SCH (09:23)
[2021-01-02] MEDS: FLUTICASONE PROPIONATE NASAL SPRAY 16 GM NS SCH (09:24)
--- NOTE | 2021-01-02 09:27 | Progress Note ---
Assessment and Plan Assessment and plan: 80 years old female with past medical history of hypertension was brought to the emergency department with a chief complaint of right arm and leg weakness that started 5 days ago. Patient states upon awakening 5 days ago there were not able to raise the right arm due to weakness. Patient states I am concerned that have had a stroke. Patient states that his right leg has come to the point where he is unable to walk on it due to the weakness. Patient also complains of having moments of slurred speech that has been intermittent since onset of the symptoms. Patient denies chest pain, shortness breath, or abdominal pain. In the emergency room initial CT scan of the head shows no acute intracranial abnormality Imaging studies including MRI and MRA of the head are negative for acute CVA. Neurology input noted likely functional impairment. Continue Lipitor 40mg daily. Possible underlying mild dementia will await TSH and B12. Recommended no driving. Problems Right side weakness as per pt. > left since September -exam is suggestive of functional impairmet with no clear weakness is noted -CT brain ,MRI brain are unremarkable,MRA unremarkable -LDL#60 on Lipitor 40 mG -eCHO WITH ef#60-65% Underlying mild dementia -check TSH,B12 -No driving -PT therapy Chronic debility PT OT on discharge Right arm weakness - Functional impairment. No CVA Hypertension -Hydralazine 10 mg IV every 6 hours as needed. We will monitor the blood pressure closely. We will continue the home medication DVT prophylaxis -Heparin 5000 units subcu every 8 hours for DVT prophylaxis. - Pepcid 20 mg IV twice daily for GI prophylaxis. -Patient is a full code Disposition - PT recommends subacute rehab.Awaiting placement History Interval history: Patient seen and examined at bedside this morning Has no complaints this morning Awaiting placement Hospitalist Physical - Physical exam Narrative exam: VITAL SIGNS: Reviewed. GENERAL: Awake HEAD: No signs of head trauma. EYES: Pupils are equal. Extraocular motions intact. MOUTH: Oropharynx is normal. NECK: No adenopathy, no JVD. CHEST: Chest with diminished breath sounds bilaterally. No wheezes, rales, or rhonchi. CARDIAC: normal S1 and S2, without murmurs, gallops, or rubs. ABDOMEN: Soft, non tender and non distended. No rebound or guarding, and no masses palpated. Bowel Sounds normal. MUSCULOSKELETAL: No edema NEUROLOGIC EXAM: Alert and oriented x3. No focal neurologic deficits SKIN: No obvious lesions - Constitutional Vitals: Temp Pulse Resp BP Pulse Ox 98.6 F 69 17 158/66 95 01/02/21 06:04 01/02/21 06:04 01/02/21 06:04 01/02/21 06:04 01/02/21 06:04 HEART Score - HEART Score Troponin: Troponin T 0.010 ng/mL (0.00-0.029) 12/31/20 05:27 Results - Labs CBC & Chem 7: 01/02/21 07:44 01/02/21 07:44 Labs: Laboratory Last Values WBC 8.6 K/mm3 (4.5-11.0) 01/02/21 07:44 RBC 3.69 M/mm3 (3.65-5.03) 01/02/21 07:44 Hgb 9.9 gm/dl (10.1-14.3) L 01/02/21 07:44 Hct 29.9 % (30.3-42.9) L 01/02/21 07:44 MCV 81 fl (79-97) 01/02/21 07:44 MCH 27 pg (28-32) L 01/02/21 07:44 MCHC 33 % (30-34) 01/02/21 07:44 RDW 19.2 % (13.2-15.2) H 01/02/21 07:44 Plt Count 327 K/mm3 (140-440) 01/02/21 07:44 Lymph % (Auto) 13.8 % (13.4-35.0) 01/02/21 07:44 [place] % (Auto) 7.8 % (0.0-7.3) H 01/02/21 07:44 Eos % (Auto) 5.5 % (0.0-4.3) H 01/02/21 07:44 Baso % (Auto) 0.8 % (0.0-1.8) 01/02/21 07:44 Lymph # (Auto) 1.2 K/mm3 (1.2-5.4) 01/02/21 07:44 [place] # (Auto) 0.7 K/mm3 (0.0-0.8) 01/02/21 07:44 Eos # (Auto) 0.5 K/mm3 (0.0-0.4) H 01/02/21 07:44 Baso # (Auto) 0.1 K/mm3 (0.0-0.1) 01/02/21 07:44 Seg Neutrophils % 72.1 % (40.0-70.0) H 01/02/21 07:44 Seg Neutrophils # 6.2 K/mm3 (1.8-7.7) 01/02/21 07:44 PT 14.5 Sec. (12.2-14.9) 12/31/20 00:01 INR 1.07 (0.87-1.13) 12/31/20 00:01 APTT 35.2 Sec. (24.2-36.6) 12/31/20 00:01 Sodium 140 mmol/L (137-145) 01/02/21 07:44 Potassium 3.3 mmol/L (3.6-5.0) L 01/02/21 07:44 Chloride 104.7 mmol/L (98-107) 01/02/21 07:44 Carbon Dioxide 25 mmol/L (22-30) 01/02/21 07:44 Anion Gap 14 mmol/L 01/02/21 07:44 BUN 16 mg/dL (7-17) 01/02/21 07:44 Creatinine 0.9 mg/dL (0.6-1.2) 01/02/21 07:44 Estimated GFR > 60 ml/min 01/02/21 07:44 BUN/Creatinine Ratio 18 % 01/02/21 07:44 Glucose 114 mg/dL (65-100) H 01/02/21 07:44 Calcium 8.4 mg/dL (8.4-10.2) 01/02/21 07:44 Phosphorus 3.30 mg/dL (2.5-4.5) 12/31/20 00:01 Magnesium 1.80 mg/dL (1.7-2.3) 01/02/21 07:44 Total Bilirubin 0.50 mg/dL (0.1-1.2) 01/02/21 07:44 Direct Bilirubin 0.2 mg/dL (0-0.2) 12/31/20 00:01 Indirect Bilirubin 0.4 mg/dL 12/31/20 00:01 AST 21 units/L (5-40) 01/02/21 07:44 ALT 31 units/L (7-56) 01/02/21 07:44 Alkaline Phosphatase 162 units/L (35-129) H 01/02/21 07:44 Troponin T 0.010 ng/mL (0.00-0.029) 12/31/20 05:27 Total Protein 6.2 g/dL (6.3-8.2) L 01/02/21 07:44 Albumin 2.9 g/dL (3.9-5) L 01/02/21 07:44 Albumin/Globulin Ratio 0.9 % 01/02/21 07:44 Triglycerides 63 mg/dL (2-149) 01/01/21 05:46 Cholesterol 108 mg/dL (50-199) 01/01/21 05:46 LDL Cholesterol Direct 60 mg/dL (50-130) 01/01/21 05:46 HDL Cholesterol 42 mg/dL (40-59) 01/01/21 05:46 Cholesterol/HDL Ratio 2.57 % 01/01/21 05:46 Urine Color Yellow (Yellow) 12/31/20 04:15 Urine Turbidity Clear (Clear) 12/31/20 04:15 Urine pH 5.0 (5.0-7.0) 12/31/20 04:15 Ur Specific [place] 1.013 (1.003-1.030) 12/31/20 04:15 Urine Protein <15 mg/dl mg/dL (Negative) 12/31/20 04:15 Urine Glucose (UA) Neg mg/dL (Negative) 12/31/20 04:15 Urine Ketones Neg mg/dL (Negative) 12/31/20 04:15 Urine Blood Neg (Negative) 12/31/20 04:15 Urine Nitrite Neg (Negative) 12/31/20 04:15 Urine Bilirubin Neg (Negative) 12/31/20 04:15 Urine Urobilinogen 2.0 mg/dL (<2.0) 12/31/20 04:15 Ur Leukocyte Esterase Neg (Negative) 12/31/20 04:15 Urine WBC (Auto) < 1.0 /HPF (0.0-6.0) 12/31/20 04:15 Urine RBC (Auto) 1.0 /HPF (0.0-6.0) 12/31/20 04:15 U Epithel Cells (Auto) < 1.0 /HPF (0-13.0) 12/31/20 04:15 Urine Mucus Few /HPF 12/31/20 04:15 Coronavirus (PCR) Negative (Negative) 01/01/21 09:48 Brooks/IV: Voiding Method Incontinent Active Medications - Current Medications Current Medications: Generic Name Dose Route Start Last Admin Trade Name Freq PRN Reason Stop Dose Admin Acetaminophen 650 mg 12/31/20 02:03 Acetaminophen 325 Mg Tab PO Q4H PRN Pain MILD(1-3)/Fever >100.5/TAPIA Albuterol 2.5 mg 12/31/20 02:03 Albuterol 2.5 Mg/3 Ml Nebu IH Q3HRT PRN Shortness Of Breath Aspirin 325 mg 12/31/20 10:00 01/02/21 09:20 Aspirin 325 Mg Tab PO 325 mg QDAY ANAMIKA Administration Atenolol 50 mg 01/02/21 10:00 01/02/21 09:19 Atenolol 50 Mg Tab PO 50 mg DAILY ANAMIKA Administration Atorvastatin Calcium 40 mg 12/31/20 22:00 01/01/21 21:18 Atorvastatin 40 Mg Tab PO 40 mg QHS ANAMIKA Administration Chlorthalidone 12.5 mg 01/02/21 10:00 01/02/21 09:23 Chlorthalidone 25 Mg Tab PO 12.5 mg QDAY ANAMIKA Administration Diphenhydramine HCl 25 mg 01/01/21 15:45 01/01/21 21:18 Diphenhydramine 25 Mg Cap PO 25 mg QHS PRN Administration Sleep Ferrous Sulfate 325 mg 01/02/21 10:00 01/02/21 09:19 Ferrous Sulfate 325 Mg Tab PO 325 mg DAILY ANAMIKA Administration Fluticasone Propionate 50 mcg 01/01/21 14:00 01/02/21 09:24 Fluticasone Propionate Nasal [place] 16 Gm NS 50 mcg QDAY ANAMIKA Administration Heparin Sodium (Porcine) 5,000 unit 12/31/20 06:00 01/02/21 05:45 Heparin 5,000 Unit/1 Ml Vial SUB-Q 5,000 unit Q8HR ANAMIKA Administration Hydralazine HCl 10 mg 12/31/20 02:06 Hydralazine 20 Mg/1 Ml Inj IV Q6H PRN htn Dextrose/Sodium Chloride 1,000 mls @ 100 mls/hr 12/31/20 03:00 01/01/21 15:38 D5ns IV 100 mls/hr DIRECT ANAMIKA Administration Montelukast Sodium 10 mg 01/01/21 18:00 01/01/21 17:19 Montelukast 10 Mg Tab PO 10 mg QPM ANAMIKA Administration Ondansetron HCl 4 mg 12/31/20 02:03 Ondansetron 4 Mg/2 Ml Inj IV Q8H PRN Nausea And Vomiting Pantoprazole Sodium 20 mg 01/01/21 14:00 01/02/21 09:19 Pantoprazole 20 Mg Tab PO 20 mg QDAY ANAMIKA Administration Potassium Chloride 20 meq 01/02/21 10:00 01/02/21 09:19 Potassium Chloride Er 10 Meq Tab PO 20 meq QDAY ANAMIKA Administration Sodium Chloride 10 ml 12/31/20 10:00 01/02/21 09:19 Sodium Chloride 0.9% 10 Ml Flush Syringe IV 10 ml BID ANAMIKA Administration Sodium Chloride 10 ml 12/31/20 02:03 Sodium Chloride 0.9% 10 Ml Flush Syringe IV PRN PRN LINE FLUSH Nutrition/Malnutrition Assess - Dietary Evaluation Nutrition/Malnutrition Findings: Nutrition Notes Start: 12/31/20 10 :46 Freq: Status: Active Protocol: Document 01/01/21 12:02 CW (Rec: 01/01/21 12:04 CW [id number]) Nutrition Notes Initial or Follow up Assessment Current Diagnosis Hypertension,Stroke Other Pertinent Diagnosis leg wound Current Diet NPO Labs/Tests K 2.8 BUN 19 Pertinent Medications D5NS at 100 ml/hr Height 6 ft Weight 91 kg [place] Body Weight (kg) 72.72 BMI 27.1 Weight Status Appropriate Subjective/Other Information F/U for intakes. Pt remains NPO at this time. Pt did not answer phone x2 for nutritional interview. RN reports that pt failed bedside swallow eval and is awaiting speech eval from GANTRY RIGGER. Percent of energy/protein needs met: 0%/0% Burn Absent Trauma Absent Difficulty In Swallowing Current % PO Negligible Minimum of two criteria No Fluid Accumulation Moderate to Severe (severe) #2 Nutrition Diagnosis Increased nutrient needs ( specify in comment below) Comments: protein needs Etiology wound healing As Evidenced by Signs and Symptoms Pt has LE wound #1 Nutrition Diagnosis Inadequate oral intake Etiology dysphagia As Evidenced by Signs and Symptoms Pt failed beside swallow eval Is patient on ventilator? No Is Patient Ambulatory and/or Out of Bed No REE-([place]-confined to bed) 1808.796 Calculation Used for Recommendations [facility] Additional Notes protein needs: 114 - 137g (1. 25 - 1.5g/kgBW) fluid needs: 1 ml/kcal Nutrition Intervention Change Diet Order: diet advancement when medically feasible or TF if necessary Nutrition Support: Promote 1.0 at 75 ml/hr with a free water flush of 50 ml/hr Kcal 1,800 Protein (gm) 113 Fluid (mL) 1,510 Goal #1 diet advancement Anticipated Discharge Needs: unable to determine at this time Follow-Up By: 01/04/21 Additional Comments F/U for speech evaluation and diet advancement
[2021-01-02] MEDS ORDERED: POTASSIUM CHLORIDE ER 20 MEQ TAB PO ONE (09:36)
[2021-01-02] MEDS ORDERED: NON-FORMULARY EACH (Iron [Iron 18 Mg Tab] 18 MG Tablet) PO SCH (10:00)
[2021-01-02] MEDS ORDERED: NON-FORMULARY EACH (Omeprazole [Omeprazole] 20 MG Capsule.Dr) PO SCH (10:00)
[2021-01-02] MEDS: MONTELUKAST 10 MG TAB PO SCH (17:19)
[2021-01-02] MEDS: D5W/0.9% NACL 1,000 ML IV SCH (23:40)
[2021-01-03] MEDS: HEPARIN 5,000 UNIT/1 ML VIAL SUB-Q SCH ×3 (05:24→21:16)
[2021-01-03] MEDS: ASPIRIN 325 MG TAB PO SCH (09:05)
[2021-01-03] MEDS: CHLORTHALIDONE 25 MG TAB PO SCH (09:05)
[2021-01-03] MEDS: POTASSIUM CHLORIDE ER 10 MEQ TAB PO SCH (09:05)
[2021-01-03] MEDS: PANTOPRAZOLE 20 MG TAB PO SCH (09:06)
[2021-01-03] MEDS: atenoloL 50 MG TAB PO SCH (09:06)
[2021-01-03] MEDS: FERROUS SULFATE 325 MG TAB PO SCH (09:06)
[2021-01-03] MEDS: FLUTICASONE PROPIONATE NASAL SPRAY 16 GM NS SCH (09:06)
--- NOTE | 2021-01-03 09:25 | Progress Note ---
Assessment and Plan Assessment and plan: 80 years old female with past medical history of hypertension was brought to the emergency department with a chief complaint of right arm and leg weakness that started 5 days ago. Patient states upon awakening 5 days ago there were not able to raise the right arm due to weakness. Patient states I am concerned that have had a stroke. Patient states that his right leg has come to the point where he is unable to walk on it due to the weakness. Patient also complains of having moments of slurred speech that has been intermittent since onset of the symptoms. Patient denies chest pain, shortness breath, or abdominal pain. In the emergency room initial CT scan of the head shows no acute intracranial abnormality Imaging studies including MRI and MRA of the head are negative for acute CVA. Neurology input noted likely functional impairment. Continue Lipitor 40mg daily. Possible underlying mild dementia will await TSH and B12. Recommended no driving. Problems Right side weakness as per pt. > left since September -exam is suggestive of functional impairmet with no clear weakness is noted -CT brain ,MRI brain are unremarkable,MRA unremarkable -LDL#60 on Lipitor 40 mG -eCHO WITH ef#60-65% Underlying mild dementia -TSH, Vitamin B12 wnl -No driving -PT therapy - needs rehab Chronic debility Needs rehab Right arm weakness - Functional impairment. No CVA Hypertension -Hydralazine 10 mg IV every 6 hours as needed. We will monitor the blood pressure closely. We will continue the home medication DVT prophylaxis -Heparin 5000 units subcu every 8 hours for DVT prophylaxis. - Pepcid 20 mg IV twice daily for GI prophylaxis. -Patient is a full code Disposition - PT recommends subacute rehab. Awaiting placement History Interval history: Patient seen and examined at bedside this morning Has no complaints this morning Awaiting placement Hospitalist Physical - Physical exam Narrative exam: VITAL SIGNS: Reviewed. GENERAL: Awake HEAD: No signs of head trauma. EYES: Pupils are equal. Extraocular motions intact. MOUTH: Oropharynx is normal. NECK: No adenopathy, no JVD. CHEST: Chest with diminished breath sounds bilaterally. No wheezes, rales, or rhonchi. CARDIAC: normal S1 and S2, without murmurs, gallops, or rubs. ABDOMEN: Soft, non tender and non distended. No rebound or guarding, and no masses palpated. Bowel Sounds normal. MUSCULOSKELETAL: No edema NEUROLOGIC EXAM: Alert and oriented x3. No focal neurologic deficits SKIN: No obvious lesions - Constitutional Vitals: Temp Pulse Resp BP Pulse Ox 97.9 F 59 L 16 142/56 96 01/03/21 04:39 01/03/21 04:39 01/03/21 04:39 01/03/21 04:39 01/03/21 04:39 HEART Score - HEART Score Troponin: Troponin T 0.010 ng/mL (0.00-0.029) 12/31/20 05:27 Results - Labs CBC & Chem 7: 01/02/21 07:44 01/02/21 07:44 Labs: Laboratory Last Values WBC 8.6 K/mm3 (4.5-11.0) 01/02/21 07:44 RBC 3.69 M/mm3 (3.65-5.03) 01/02/21 07:44 Hgb 9.9 gm/dl (10.1-14.3) L 01/02/21 07:44 Hct 29.9 % (30.3-42.9) L 01/02/21 07:44 MCV 81 fl (79-97) 01/02/21 07:44 MCH 27 pg (28-32) L 01/02/21 07:44 MCHC 33 % (30-34) 01/02/21 07:44 RDW 19.2 % (13.2-15.2) H 01/02/21 07:44 Plt Count 327 K/mm3 (140-440) 01/02/21 07:44 Lymph % (Auto) 13.8 % (13.4-35.0) 01/02/21 07:44 [place] % (Auto) 7.8 % (0.0-7.3) H 01/02/21 07:44 Eos % (Auto) 5.5 % (0.0-4.3) H 01/02/21 07:44 Baso % (Auto) 0.8 % (0.0-1.8) 01/02/21 07:44 Lymph # (Auto) 1.2 K/mm3 (1.2-5.4) 01/02/21 07:44 [place] # (Auto) 0.7 K/mm3 (0.0-0.8) 01/02/21 07:44 Eos # (Auto) 0.5 K/mm3 (0.0-0.4) H 01/02/21 07:44 Baso # (Auto) 0.1 K/mm3 (0.0-0.1) 01/02/21 07:44 Seg Neutrophils % 72.1 % (40.0-70.0) H 01/02/21 07:44 Seg Neutrophils # 6.2 K/mm3 (1.8-7.7) 01/02/21 07:44 PT 14.5 Sec. (12.2-14.9) 12/31/20 00:01 INR 1.07 (0.87-1.13) 12/31/20 00:01 APTT 35.2 Sec. (24.2-36.6) 12/31/20 00:01 Sodium 140 mmol/L (137-145) 01/02/21 07:44 Potassium 3.3 mmol/L (3.6-5.0) L 01/02/21 07:44 Chloride 104.7 mmol/L (98-107) 01/02/21 07:44 Carbon Dioxide 25 mmol/L (22-30) 01/02/21 07:44 Anion Gap 14 mmol/L 01/02/21 07:44 BUN 16 mg/dL (7-17) 01/02/21 07:44 Creatinine 0.9 mg/dL (0.6-1.2) 01/02/21 07:44 Estimated GFR > 60 ml/min 01/02/21 07:44 BUN/Creatinine Ratio 18 % 01/02/21 07:44 Glucose 114 mg/dL (65-100) H 01/02/21 07:44 Calcium 8.4 mg/dL (8.4-10.2) 01/02/21 07:44 Phosphorus 3.30 mg/dL (2.5-4.5) 12/31/20 00:01 Magnesium 1.80 mg/dL (1.7-2.3) 01/02/21 07:44 Total Bilirubin 0.50 mg/dL (0.1-1.2) 01/02/21 07:44 Direct Bilirubin 0.2 mg/dL (0-0.2) 12/31/20 00:01 Indirect Bilirubin 0.4 mg/dL 12/31/20 00:01 AST 21 units/L (5-40) 01/02/21 07:44 ALT 31 units/L (7-56) 01/02/21 07:44 Alkaline Phosphatase 162 units/L (35-129) H 01/02/21 07:44 Troponin T 0.010 ng/mL (0.00-0.029) 12/31/20 05:27 Total Protein 6.2 g/dL (6.3-8.2) L 01/02/21 07:44 Albumin 2.9 g/dL (3.9-5) L 01/02/21 07:44 Albumin/Globulin Ratio 0.9 % 01/02/21 07:44 Triglycerides 63 mg/dL (2-149) 01/01/21 05:46 Cholesterol 108 mg/dL (50-199) 01/01/21 05:46 LDL Cholesterol Direct 60 mg/dL (50-130) 01/01/21 05:46 HDL Cholesterol 42 mg/dL (40-59) 01/01/21 05:46 Cholesterol/HDL Ratio 2.57 % 01/01/21 05:46 Vitamin B12 489.4 pg/mL (211-911) 01/03/21 05:06 TSH 0.994 mlU/mL (0.270-4.200) 01/03/21 05:06 Urine Color Yellow (Yellow) 12/31/20 04:15 Urine Turbidity Clear (Clear) 12/31/20 04:15 Urine pH 5.0 (5.0-7.0) 12/31/20 04:15 Ur Specific [place] 1.013 (1.003-1.030) 12/31/20 04:15 Urine Protein <15 mg/dl mg/dL (Negative) 12/31/20 04:15 Urine Glucose (UA) Neg mg/dL (Negative) 12/31/20 04:15 Urine Ketones Neg mg/dL (Negative) 12/31/20 04:15 Urine Blood Neg (Negative) 12/31/20 04:15 Urine Nitrite Neg (Negative) 12/31/20 04:15 Urine Bilirubin Neg (Negative) 12/31/20 04:15 Urine Urobilinogen 2.0 mg/dL (<2.0) 12/31/20 04:15 Ur Leukocyte Esterase Neg (Negative) 12/31/20 04:15 Urine WBC (Auto) < 1.0 /HPF (0.0-6.0) 12/31/20 04:15 Urine RBC (Auto) 1.0 /HPF (0.0-6.0) 12/31/20 04:15 U Epithel Cells (Auto) < 1.0 /HPF (0-13.0) 12/31/20 04:15 Urine Mucus Few /HPF 12/31/20 04:15 Coronavirus (PCR) Negative (Negative) 01/01/21 09:48 Brooks/IV: Voiding Method Urinal Active Medications - Current Medications Current Medications: Generic Name Dose Route Start Last Admin Trade Name Freq PRN Reason Stop Dose Admin Acetaminophen 650 mg 12/31/20 02:03 Acetaminophen 325 Mg Tab PO Q4H PRN Pain MILD(1-3)/Fever >100.5/TAPIA Albuterol 2.5 mg 12/31/20 02:03 Albuterol 2.5 Mg/3 Ml Nebu IH Q3HRT PRN Shortness Of Breath Aspirin 325 mg 12/31/20 10:00 01/03/21 09:05 Aspirin 325 Mg Tab PO 325 mg QDAY ANAMIKA Administration Atenolol 50 mg 01/02/21 10:00 01/03/21 09:06 Atenolol 50 Mg Tab PO 50 mg DAILY ANAMIKA Administration Atorvastatin Calcium 40 mg 12/31/20 22:00 01/02/21 21:42 Atorvastatin 40 Mg Tab PO 40 mg QHS ANAMIKA Administration Chlorthalidone 12.5 mg 01/02/21 10:00 01/03/21 09:05 Chlorthalidone 25 Mg Tab PO 12.5 mg QDAY ANAMIKA Administration Diphenhydramine HCl 25 mg 01/01/21 15:45 01/01/21 21:18 Diphenhydramine 25 Mg Cap PO 25 mg QHS PRN Administration Sleep Ferrous Sulfate 325 mg 01/02/21 10:00 01/03/21 09:06 Ferrous Sulfate 325 Mg Tab PO 325 mg DAILY ANAMIKA Administration Fluticasone Propionate 50 mcg 01/01/21 14:00 01/03/21 09:06 Fluticasone Propionate Nasal [place] 16 Gm NS 50 mcg QDAY ANAMIKA Administration Heparin Sodium (Porcine) 5,000 unit 12/31/20 06:00 01/03/21 05:24 Heparin 5,000 Unit/1 Ml Vial SUB-Q 5,000 unit Q8HR ANAMIKA Administration Hydralazine HCl 10 mg 12/31/20 02:06 Hydralazine 20 Mg/1 Ml Inj IV Q6H PRN htn Montelukast Sodium 10 mg 01/01/21 18:00 01/02/21 17:19 Montelukast 10 Mg Tab PO 10 mg QPM ANAMIKA Administration Ondansetron HCl 4 mg 12/31/20 02:03 Ondansetron 4 Mg/2 Ml Inj IV Q8H PRN Nausea And Vomiting Pantoprazole Sodium 20 mg 01/01/21 14:00 01/03/21 09:06 Pantoprazole 20 Mg Tab PO 20 mg QDAY ANAMIKA Administration Potassium Chloride 20 meq 01/02/21 10:00 01/03/21 09:05 Potassium Chloride Er 10 Meq Tab PO 20 meq QDAY ANAMIKA Administration Sodium Chloride 10 ml 12/31/20 10:00 01/03/21 09:07 Sodium Chloride 0.9% 10 Ml Flush Syringe IV 10 ml BID ANAMIKA Administration Sodium Chloride 10 ml 12/31/20 02:03 Sodium Chloride 0.9% 10 Ml Flush Syringe IV PRN PRN LINE FLUSH Nutrition/Malnutrition Assess - Dietary Evaluation Nutrition/Malnutrition Findings: Nutrition Notes Start: 12/31/20 10:46 Freq: Status: Active Protocol: Document 01/01/21 12:02 CW (Rec: 01/01/21 12:04 CW [id number]) Nutrition Notes Initial or Follow up Assessment Current Diagnosis Hypertension,Stroke Other Pertinent Diagnosis leg wound Current Diet NPO Labs/Tests K 2.8 BUN 19 Pertinent Medications D5NS at 100 ml/hr Height 6 ft Weight 91 kg [place] Body Weight (kg) 72.72 BMI 27.1 Weight Status Appropriate Subjective/Other Information F/U for intakes. Pt remains NPO at this time. Pt did not answer phone x2 for nutritional interview. RN reports that pt failed bedside swallow eval and is awaiting speech eval from [employer]IDENT[employer] HELPER. Percent of energy/protein needs met: 0%/0% Burn Absent Trauma Absent Difficulty In Swallowing Current % PO Negligible Minimum of two criteria No Fluid Accumulation Moderate to Severe (severe) #2 Nutrition Diagnosis Increased nutrient needs ( specify in comment below) Comments: protein needs Etiology wound healing As Evidenced by Signs and Symptoms Pt has LE wound #1 Nutrition Diagnosis Inadequate oral intake Etiology dysphagia As Evidenced by Signs and Symptoms Pt failed beside swallow eval Is patient on ventilator? No Is Patient Ambulatory and/or Out of Bed No REE-([facility]-confined to bed) 2931.146 Calculation Used for Recommendations [facility] Additional Notes protein needs: 114 - 137g (1. 25 - 1.5g/kgBW) fluid needs: 1 ml/kcal Nutrition Intervention Change Diet Order: diet advancement when medically feasible or TF if necessary Nutrition Support: Promote 1.0 at 75 ml/hr with a free water flush of 50 ml/hr Kcal 1,800 Protein (gm) 113 Fluid (mL) 1,510 Goal #1 diet advancement Anticipated Discharge Needs: unable to determine at this time Follow-Up By: 01/04/21 Additional Comments F/U for speech evaluation and diet advancement
[2021-01-03] MEDS: MONTELUKAST 10 MG TAB PO SCH (17:14)
[2021-01-04] MEDS: HEPARIN 5,000 UNIT/1 ML VIAL SUB-Q SCH ×3 (05:50→21:41)
--- NOTE | 2021-01-04 08:49 | Progress Note ---
Assessment and Plan Assessment and plan: 80 years old female with past medical history of hypertension was brought to the emergency department with a chief complaint of right arm and leg weakness that started 5 days ago. Patient states upon awakening 5 days ago there were not able to raise the right arm due to weakness. Patient states I am concerned that have had a stroke. Patient states that his right leg has come to the point where he is unable to walk on it due to the weakness. Patient also complains of having moments of slurred speech that has been intermittent since onset of the symptoms. Patient denies chest pain, shortness breath, or abdominal pain. In the emergency room initial CT scan of the head shows no acute intracranial abnormality Imaging studies including MRI and MRA of the head are negative for acute CVA. Neurology input noted likely functional impairment. Continue Lipitor 40mg daily. Possible underlying mild dementia will await TSH and B12. Recommended no driving. She is awaiting placement. Referrals have been sent to facilities. Problems #Right side weakness as per pt. > left since September -exam is suggestive of functional impairmet with no clear weakness is noted -CT brain ,MRI brain are unremarkable,MRA unremarkable -LDL#60 on Lipitor 40 mG -eCHO WITH ef#60-65% #Underlying mild dementia -TSH, Vitamin B12 wnl -No driving -PT therapy - needs rehab #Chronic debility Needs rehab #Right arm weakness - Functional impairment. No CVA #Hypertension -Hydralazine 10 mg IV every 6 hours as needed. We will monitor the blood pressure closely. We will continue the home medication #DVT prophylaxis -Heparin 5000 units subcu every 8 hours for DVT prophylaxis. - Pepcid 20 mg IV twice daily for GI prophylaxis. -Patient is a full code Disposition - PT recommends subacute rehab. Awaiting placement History Interval history: Patient seen and examined at bedside this morning Has no complaints this morning Awaiting placement Hospitalist Physical - Physical exam Narrative exam: VITAL SIGNS: Reviewed. GENERAL: Awake HEAD: No signs of head trauma. EYES: Pupils are equal. Extraocular motions intact. MOUTH: Oropharynx is normal. NECK: No adenopathy, no JVD. CHEST: Chest with diminished breath sounds bilaterally. No wheezes, rales, or rhonchi. CARDIAC: normal S1 and S2, without murmurs, gallops, or rubs. ABDOMEN: Soft, non tender and non distended. No rebound or guarding, and no masses palpated. Bowel Sounds normal. MUSCULOSKELETAL: No edema NEUROLOGIC EXAM: Alert and oriented x3. No focal neurologic deficits SKIN: No obvious lesions - Constitutional Vitals: Temp Pulse Resp BP Pulse Ox 98.8 F 60 18 130/49 95 01/04/21 00:34 01/04/21 00:34 01/04/21 00:34 01/04/21 00:34 01/04/21 00:34 HEART Score - HEART Score Troponin: Troponin T 0.010 ng/mL (0.00-0.029) 12/31/20 05:27 Results - Labs CBC & Chem 7: 01/02/21 07:44 01/02/21 07:44 Labs: Laboratory Last Values WBC 8.6 K/mm3 (4.5-11.0) 01/02/21 07:44 RBC 3.69 M/mm3 (3.65-5.03) 01/02/21 07:44 Hgb 9.9 gm/dl (10.1-14.3) L 01/02/21 07:44 Hct 29.9 % (30.3-42.9) L 01/02/21 07:44 MCV 81 fl (79-97) 01/02/21 07:44 MCH 27 pg (28-32) L 01/02/21 07:44 MCHC 33 % (30-34) 01/02/21 07:44 RDW 19.2 % (13.2-15.2) H 01/02/21 07:44 Plt Count 327 K/mm3 (140-440) 01/02/21 07:44 Lymph % (Auto) 13.8 % (13.4-35.0) 01/02/21 07:44 [place] % (Auto) 7.8 % (0.0-7.3) H 01/02/21 07:44 Eos % (Auto) 5.5 % (0.0-4.3) H 01/02/21 07:44 Baso % (Auto) 0.8 % (0.0-1.8) 01/02/21 07:44 Lymph # (Auto) 1.2 K/mm3 (1.2-5.4) 01/02/21 07:44 [place] # (Auto) 0.7 K/mm3 (0.0-0.8) 01/02/21 07:44 Eos # (Auto) 0.5 K/mm3 (0.0-0.4) H 01/02/21 07:44 Baso # (Auto) 0.1 K/mm3 (0.0-0.1) 01/02/21 07:44 Seg Neutrophils % 72.1 % (40.0-70.0) H 01/02/21 07:44 Seg Neutrophils # 6.2 K/mm3 (1.8-7.7) 01/02/21 07:44 PT 14.5 Sec. (12.2-14.9) 12/31/20 00:01 INR 1.07 (0.87-1.13) 12/31/20 00:01 APTT 35.2 Sec. (24.2-36.6) 12/31/20 00:01 Sodium 140 mmol/L (137-145) 01/02/21 07:44 Potassium 3.3 mmol/L (3.6-5.0) L 01/02/21 07:44 Chloride 104.7 mmol/L (98-107) 01/02/21 07:44 Carbon Dioxide 25 mmol/L (22-30) 01/02/21 07:44 Anion Gap 14 mmol/L 01/02/21 07:44 BUN 16 mg/dL (7-17) 01/02/21 07:44 Creatinine 0.9 mg/dL (0.6-1.2) 01/02/21 07:44 Estimated GFR > 60 ml/min 01/02/21 07:44 BUN/Creatinine Ratio 18 % 01/02/21 07:44 Glucose 114 mg/dL (65-100) H 01/02/21 07:44 Calcium 8.4 mg/dL (8.4-10.2) 01/02/21 07:44 Phosphorus 3.30 mg/dL (2.5-4.5) 12/31/20 00:01 Magnesium 1.80 mg/dL (1.7-2.3) 01/02/21 07:44 Total Bilirubin 0.50 mg/dL (0.1-1.2) 01/02/21 07:44 Direct Bilirubin 0.2 mg/dL (0-0.2) 12/31/20 00:01 Indirect Bilirubin 0.4 mg/dL 12/31/20 00:01 AST 21 units/L (5-40) 01/02/21 07:44 ALT 31 units/L (7-56) 01/02/21 07:44 Alkaline Phosphatase 162 units/L (35-129) H 01/02/21 07:44 Troponin T 0.010 ng/mL (0.00-0.029) 12/31/20 05:27 Total Protein 6.2 g/dL (6.3-8.2) L 01/02/21 07:44 Albumin 2.9 g/dL (3.9-5) L 01/02/21 07:44 Albumin/Globulin Ratio 0.9 % 01/02/21 07:44 Triglycerides 63 mg/dL (2-149) 01/01/21 05:46 Cholesterol 108 mg/dL (50-199) 01/01/21 05:46 LDL Cholesterol Direct 60 mg/dL (50-130) 01/01/21 05:46 HDL Cholesterol 42 mg/dL (40-59) 01/01/21 05:46 Cholesterol/HDL Ratio 2.57 % 01/01/21 05:46 Vitamin B12 489.4 pg/mL (211-911) 01/03/21 05:06 TSH 0.994 mlU/mL (0.270-4.200) 01/03/21 05:06 Urine Color Yellow (Yellow) 12/31/20 04:15 Urine Turbidity Clear (Clear) 12/31/20 04:15 Urine pH 5.0 (5.0-7.0) 12/31/20 04:15 Ur Specific [place] 1.013 (1.003-1.030) 12/31/20 04:15 Urine Protein <15 mg/dl mg/dL (Negative) 12/31/20 04:15 Urine Glucose (UA) Neg mg/dL (Negative) 12/31/20 04:15 Urine Ketones Neg mg/dL (Negative) 12/31/20 04:15 Urine Blood Neg (Negative) 12/31/20 04:15 Urine Nitrite Neg (Negative) 12/31/20 04:15 Urine Bilirubin Neg (Negative) 12/31/20 04:15 Urine Urobilinogen 2.0 mg/dL (<2.0) 12/31/20 04:15 Ur Leukocyte Esterase Neg (Negative) 12/31/20 04:15 Urine WBC (Auto) < 1.0 /HPF (0.0-6.0) 12/31/20 04:15 Urine RBC (Auto) 1.0 /HPF (0.0-6.0) 12/31/20 04:15 U Epithel Cells (Auto) < 1.0 /HPF (0-13.0) 12/31/20 04:15 Urine Mucus Few /HPF 12/31/20 04:15 Coronavirus (PCR) Negative (Negative) 01/01/21 09:48 Brooks/IV: Voiding Method Urinal Active Medications - Current Medications Current Medications: Generic Name Dose Route Start Last Admin Trade Name Freq PRN Reason Stop Dose Admin Acetaminophen 650 mg 12/31/20 02:03 Acetaminophen 325 Mg Tab PO Q4H PRN Pain MILD(1-3)/Fever >100.5/TAPIA Albuterol 2.5 mg 12/31/20 02:03 Albuterol 2.5 Mg/3 Ml Nebu IH Q3HRT PRN Shortness Of Breath Aspirin 325 mg 12/31/20 10:00 01/03/21 09:05 Aspirin 325 Mg Tab PO 325 mg QDAY ANAMIKA Administration Atenolol 50 mg 01/02/21 10:00 01/03/21 09:06 Atenolol 50 Mg Tab PO 50 mg DAILY ANAMIKA Administration Atorvastatin Calcium 40 mg 12/31/20 22:00 01/03/21 21:16 Atorvastatin 40 Mg Tab PO 40 mg QHS ANAMIKA Administration Chlorthalidone 12.5 mg 01/02/21 10:00 01/03/21 09:05 Chlorthalidone 25 Mg Tab PO 12.5 mg QDAY ANAMIKA Administration Diphenhydramine HCl 25 mg 01/01/21 15:45 01/01/21 21:18 Diphenhydramine 25 Mg Cap PO 25 mg QHS PRN Administration Sleep Ferrous Sulfate 325 mg 01/02/21 10:00 01/03/21 09:06 Ferrous Sulfate 325 Mg Tab PO 325 mg DAILY ANAMIKA Administration Fluticasone Propionate 50 mcg 01/01/21 14:00 01/03/21 09:06 Fluticasone Propionate Nasal [place] 16 Gm NS 50 mcg QDAY ANAMIKA Administration Heparin Sodium (Porcine) 5,000 unit 12/31/20 06:00 01/04/21 05:50 Heparin 5,000 Unit/1 Ml Vial SUB-Q 5,000 unit Q8HR ANAMIKA Administration Hydralazine HCl 10 mg 12/31/20 02:06 Hydralazine 20 Mg/1 Ml Inj IV Q6H PRN htn Montelukast Sodium 10 mg 01/01/21 18:00 01/03/21 17:14 Montelukast 10 Mg Tab PO 10 mg QPM ANAMIKA Administration Ondansetron HCl 4 mg 12/31/20 02:03 Ondansetron 4 Mg/2 Ml Inj IV Q8H PRN Nausea And Vomiting Pantoprazole Sodium 20 mg 01/01/21 14:00 01/03/21 09:06 Pantoprazole 20 Mg Tab PO 20 mg QDAY ANAMIKA Administration Potassium Chloride 20 meq 01/02/21 10:00 01/03/21 09:05 Potassium Chloride Er 10 Meq Tab PO 20 meq QDAY ANAMIKA Administration Sodium Chloride 10 ml 12/31/20 10:00 01/03/21 21:17 Sodium Chloride 0.9% 10 Ml Flush Syringe IV 10 ml BID ANAMIKA Administration Sodium Chloride 10 ml 12/31/20 02:03 Sodium Chloride 0.9% 10 Ml Flush Syringe IV PRN PRN LINE FLUSH Nutrition/Malnutrition Assess - Dietary Evaluation Nutrition/Malnutrition Findings: Nutrition Notes Start: 12/31/20 10:46 Freq: Status: Active Protocol: Document 01/01/21 12:02 CW (Rec: 01/01/21 12:04 [id number]) Nutrition Notes Initial or Follow up Assessment Current Diagnosis Hypertension,Stroke Other Pertinent Diagnosis leg wound Current Diet NPO Labs/Tests K 2.8 BUN 19 Pertinent Medications D5NS at 100 ml/hr Height 6 ft Weight 91 kg [place] Body Weight (kg) 72.72 BMI 27.1 Weight Status Appropriate Subjective/Other Information F/U for intakes. Pt remains NPO at this time. Pt did not answer phone x2 for nutritional interview. RN reports that pt failed bedside swallow eval and is awaiting speech eval from NURSING UNIT MANAGER. Percent of energy/protein needs met: 0%/0% Burn Absent Trauma Absent Difficulty In Swallowing Current % PO Negligible Minimum of two criteria No Fluid Accumulation Moderate to Severe (severe) #2 Nutrition Diagnosis Increased nutrient needs ( specify in comment below) Comments: protein needs Etiology wound healing As Evidenced by Signs and Symptoms Pt has LE wound #1 Nutrition Diagnosis Inadequate oral intake Etiology dysphagia As Evidenced by Signs and Symptoms Pt failed beside swallow eval Is patient on ventilator? No Is Patient Ambulatory and/or Out of Bed No REE-([facility]-confined to bed) 6631.793 Calculation Used for Recommendations [facility] Additional Notes protein needs: 114 - 137g (1. 25 - 1.5g/kgBW) fluid needs: 1 ml/kcal Nutrition Intervention Change Diet Order: diet advancement when medically feasible or TF if necessary Nutrition Support: Promote 1.0 at 75 ml/hr with a free water flush of 50 ml/hr Kcal 1,800 Protein (gm) 113 Fluid (mL) 1,510 Goal #1 diet advancement Anticipated Discharge Needs: unable to determine at this time Follow-Up By: 01/04/21 Additional Comments F/U for speech evaluation and diet advancement
[2021-01-04] MEDS: FERROUS SULFATE 325 MG TAB PO SCH (10:37)
[2021-01-04] MEDS: PANTOPRAZOLE 20 MG TAB PO SCH (10:37)
[2021-01-04] MEDS: POTASSIUM CHLORIDE ER 10 MEQ TAB PO SCH (10:37)
[2021-01-04] MEDS: ASPIRIN 325 MG TAB PO SCH (10:37)
[2021-01-04] MEDS: CHLORTHALIDONE 25 MG TAB PO SCH (10:37)
[2021-01-04] MEDS: atenoloL 50 MG TAB PO SCH (10:38)
[2021-01-04] MEDS: FLUTICASONE PROPIONATE NASAL SPRAY 16 GM NS SCH (10:39)
[2021-01-04] MEDS: MONTELUKAST 10 MG TAB PO SCH (17:52)
[2021-01-05] MEDS: HEPARIN 5,000 UNIT/1 ML VIAL SUB-Q SCH ×3 (06:20→21:18)
[2021-01-05] MEDS: ASPIRIN 325 MG TAB PO SCH (09:35)
[2021-01-05] MEDS: atenoloL 50 MG TAB PO SCH (09:35)
[2021-01-05] MEDS: PANTOPRAZOLE 20 MG TAB PO SCH (09:35)
[2021-01-05] MEDS: FERROUS SULFATE 325 MG TAB PO SCH (09:35)
[2021-01-05] MEDS: POTASSIUM CHLORIDE ER 10 MEQ TAB PO SCH (09:35)
--- NOTE | 2021-01-05 12:57 | Progress Note ---
Assessment and Plan 80 years old female with past medical history of hypertension was brought to the emergency department with a chief complaint of right arm and leg weakness that started 5 days ago. In the emergency room initial CT scan of the head shows no acute intracranial abnormality Imaging studies including MRI and MRA of the head are negative for acute CVA. Neurology input noted likely functional impairment. Continue Lipitor 40mg daily. Possible underlying mild dementia. Recommended no driving. She is awaiting placement. Referrals have been sent to facilities. A/P #Right side weakness as per pt. > left since September -exam is suggestive of functional impairmet with no clear weakness is noted -CT brain ,MRI brain are unremarkable,MRA unremarkable -LDL#60 on Lipitor 40 mG -eCHO WITH ef#60-65% #Underlying mild dementia -TSH, Vitamin B12 wnl -No driving -PT therapy - needs rehab #Chronic debility Needs rehab #Right arm weakness - Functional impairment. No CVA #Hypertension -Hydralazine 10 mg IV every 6 hours as needed. We will monitor the blood pressure closely. We will continue the home medication #DVT prophylaxis -Heparin 5000 units subcu every 8 hours for DVT prophylaxis. - Pepcid 20 mg IV twice daily for GI prophylaxis. -Patient is a full code Disposition - PT recommends subacute rehab. Awaiting placement Subjective Date of service: 01/05/21 Interval history: Patient seen and examined. Medical records and medication list reviewed. No acute event overnight noted by the RN. Patient denies any chest pain or difficulty breathing. Patient is tolerating diet. Discussed plan of care at bedside with patient. Discharge pending on placement Objective - Exam Narrative Exam: GENERAL: well-developed and well-nourished elderly white female lying on bed appeared to be in no discomfort. HEENT: Normocephalic. Atraumatic. No conjunctival congestion or icterus. Patient has moist mucous membranes. NECK: Supple. Trachea midline. CHEST/LUNGS: Clear to auscultated bilaterally, breathing nonlabored. No wheezes crackles or rhonchi. HEART/CARDIOVASCULAR: Regular in rate and rhythm. S1 and S2 positive. ABDOMEN: Abdomen is soft, nontender. Patient has normal bowel sounds. SKIN: There is no rash. Warm and dry. NEURO: Cranial nerves intact. Follows command. MUSCULOSKELETAL: No joint effusion or tenderness. EXTRIMITY: No edema, no cyanosis or clubbing. PSYCH: Cooperative. - Constitutional Vitals: Vital Signs - 12hr 01/05/21 01/05/21 04:58 09:35 Temperature 98.1 F Pulse Rate 56 L Respiratory 18 Rate Blood Pressure 147/55 113/46 O2 Sat by Pulse 95 Oximetry - Labs CBC & Chem 7: 01/02/21 07:44 01/07/21 06:53 HEART Score - HEART Score Troponin: Troponin T 0.010 ng/mL (0.00-0.029) 12/31/20 05:27
[2021-01-05] MEDS: CHLORTHALIDONE 25 MG TAB PO SCH (13:54)
[2021-01-05] MEDS: FLUTICASONE PROPIONATE NASAL SPRAY 16 GM NS SCH (14:05)
[2021-01-05] MEDS: MONTELUKAST 10 MG TAB PO SCH (17:04)
[2021-01-06] MEDS: HEPARIN 5,000 UNIT/1 ML VIAL SUB-Q SCH ×3 (06:22→23:07)
[2021-01-06] MEDS: POTASSIUM CHLORIDE ER 10 MEQ TAB PO SCH (10:38)
[2021-01-06] MEDS: ASPIRIN 325 MG TAB PO SCH (10:42)
[2021-01-06] MEDS: FERROUS SULFATE 325 MG TAB PO SCH (10:43)
[2021-01-06] MEDS: PANTOPRAZOLE 20 MG TAB PO SCH (10:43)
[2021-01-06] MEDS: CHLORTHALIDONE 25 MG TAB PO SCH (10:43)
[2021-01-06] MEDS: atenoloL 50 MG TAB PO SCH (10:43)
[2021-01-06] MEDS: FLUTICASONE PROPIONATE NASAL SPRAY 16 GM NS SCH (10:46)
--- NOTE | 2021-01-06 11:13 | Consultation ---
History of Present Illness Consult date: 01/06/21 Requesting physician: YOSELIN LI Consult reason: arrhythmia History of present illness: This patient is a 80-year-old female with a significant history of hypertension. She is previously unknown to our practice. She presents to [facility] ER with chief complaint of intermittent right arm and leg weakness x5 days. She reports unable to walk due to right-sided weakness. She has also experienced intermittent slurred speech. CT and brain MRI are negative for acute CVA. Patient is found to be in severe hypokalemia. Potassium is being repleted. Cardiology is consulted for sinus pauses noted on telemetry. Review of telemetry shows overall sinus rhythm in 60s with several episodes of sinus pauses ranging from 1 second to 2 seconds. No episodes exceed 3 seconds. Patient denies any dizziness, syncope, shortness of breath, chest pain, abdominal pain, N/V/D, recent illness or known exposures. She is currently awaiting placement with subacute rehab facility. Past History Past Medical History: hypertension, other (See HPI) Medications and Allergies Allergies Allergy/AdvReac Type Severity Reaction Status Date / Time No Known Allergies Allergy Unverified 12/30/20 22:27 Home Medications Medication Instructions Recorded Confirmed Last Taken Type Chlorthalidone [Thalitone] 12.5 mg PO QDAY 12/31/20 12/31/20 12/30/20 History Fluticasone [Flonase] 1 spray NS QDAY 12/31/20 12/31/20 12/30/20 History Iron [Iron 18 MG TAB] 65 mg PO DAILY 12/31/20 12/31/20 12/30/20 History Montelukast [Singulair] 10 mg PO QPM 12/31/20 12/31/20 12/30/20 History Omeprazole 20 mg PO DAILY 12/31/20 12/31/20 12/30/20 History Potassium Chloride [K-Dur] 20 meq PO QDAY 12/31/20 12/31/20 12/30/20 History Pravastatin Sodium [Pravastatin] 20 mg PO QHS 12/31/20 12/31/20 12/30/20 History atenoloL [Tenormin] 50 mg PO DAILY 12/31/20 12/31/20 12/30/20 History Active Meds: Active Medications Acetaminophen (Acetaminophen 325 Mg Tab) 650 mg PO Q4H PRN PRN Reason: Pain MILD(1-3)/Fever >100.5/TAPIA Albuterol (Albuterol 2.5 Mg/3 Ml Nebu) 2.5 mg IH Q3HRT PRN PRN Reason: Shortness Of Breath Aspirin (Aspirin 325 Mg Tab) 325 mg PO QDAY [facility] Last Admin: 01/06/21 10:42 Dose: 325 mg Documented by: Atenolol (Atenolol 50 Mg Tab) 50 mg PO DAILY [facility] Last Admin: 01/06/21 10:43 Dose: 50 mg Documented by: Atorvastatin Calcium (Atorvastatin 40 Mg Tab) 40 mg PO QHS [facility] Last Admin: 01/05/21 21:18 Dose: 40 mg Documented by: Chlorthalidone (Chlorthalidone 25 Mg Tab) 12.5 mg PO QDAY [facility] Last Admin: 01/06/21 10:43 Dose: 12.5 mg Documented by: Diphenhydramine HCl (Diphenhydramine 25 Mg Cap) 25 mg PO QHS PRN PRN Reason: Sleep Last Admin: 01/01/21 21:18 Dose: 25 mg Documented by: Ferrous Sulfate (Ferrous Sulfate 325 Mg Tab) 325 mg PO DAILY [facility] Last Admin: 01/06/21 10:43 Dose: 325 mg Documented by: Fluticasone Propionate (Fluticasone Propionate Nasal [place] 16 Gm) 50 mcg NS QDAY [facility] Last Admin: 01/06/21 10:46 Dose: 50 mcg Documented by: Heparin Sodium (Porcine) (Heparin 5,000 Unit/1 Ml Vial) 5,000 unit SUB-Q Q8HR [facility] Last Admin: 01/06/21 06:22 Dose: 5,000 unit Documented by: Hydralazine HCl (Hydralazine 20 Mg/1 Ml Inj) 10 mg IV Q6H PRN PRN Reason: htn Montelukast Sodium (Montelukast 10 Mg Tab) 10 mg PO QPM [facility] Last Admin: 01/05/21 17:04 Dose: 10 mg Documented by: Ondansetron HCl (Ondansetron 4 Mg/2 Ml Inj) 4 mg IV Q8H PRN PRN Reason: Nausea And Vomiting Pantoprazole Sodium (Pantoprazole 20 Mg Tab) 20 mg PO QDAY [facility] Last Admin: 01/06/21 10:43 Dose: 20 mg Documented by: Potassium Chloride (Potassium Chloride Er 10 Meq Tab) 20 meq PO QDAY [facility] Last Admin: 01/06/21 10:38 Dose: 20 meq Documented by: Sodium Chloride (Sodium Chloride 0.9% 10 Ml Flush Syringe) 10 ml IV BID [facility] Last Admin: 01/06/21 10:44 Dose: 10 ml Documented by: Sodium Chloride (Sodium Chloride 0.9% 10 Ml Flush Syringe) 10 ml IV PRN PRN PRN Reason: LINE FLUSH Review of Systems Constitutional: no weight loss, no weight gain, no fever, no chills, no sweats Ears, nose, mouth and throat: no ear pain, no ear discharge, no nose pain, no nasal congestion, no nasal discharge Cardiovascular: no chest pain, no orthopnea, no palpitations, no rapid/irregular heart beat, no edema, no syncope, no lightheadedness, no shortness of breath Respiratory: no cough, no hemoptysis, no shortness of breath Gastrointestinal: no abdominal pain, no nausea, no vomiting, no diarrhea Genitourinary Female: no pelvic pain, no flank pain Musculoskeletal: muscle weakness, no neck stiffness, no neck pain, no shooting arm pain, no arm numbness/tingling, no low back pain, no shooting leg pain, no leg numbness/tingling Integumentary: sores (Significant chronic wound noted to right ankle documented in SEP), wounds, no rash, no pruritis, no redness Neurological: weakness, no head injury, no paralysis, no parathesias, no numbness, no tingling, no seizures, no syncope Psychiatric: no anxiety Endocrine: no cold intolerance, no heat intolerance Hematologic/Lymphatic: no easy bruising, no easy bleeding Allergic/Immunologic: no urticaria Physical Examination Last Vital Signs Temp 98.0 F 01/06/21 05:03 Pulse 65 01/06/21 10:43 Resp 16 01/06/21 05:03 BP 126/51 01/06/21 10:43 Pulse Ox 94 01/06/21 05:03 General appearance: no acute distress HEENT: Positive: PERRL, Normocephaly, Mucus Membranes Moist Neck: Positive: neck supple, trachea midline Cardiac: Positive: Reg Rate and Rhythm, S1/S2 Lungs: Positive: Normal Exam, Normal Breath Sounds Neuro: Positive: Weakness, Other (Right arm and leg weakness reported) Abdomen: Positive: Unremarkable Skin: Positive: Wound. Negative: Rash Extremities: Present: upper extr. pulses, lower extr. pulses. Absent: edema Results 01/02/21 07:44 01/06/21 09:56 Comprehensive Metabolic Panel 01/06/21 Range/Units 09:56 Potassium 3.3 L (3.6-5.0) mmol/L - Imaging and Cardiology Echo: report reviewed EKG: report reviewed, image reviewed EKG interpretations - Telemetry EKG Rhythm: Sinus Rhythm - EKG Sinus rhythms and dysrhythmias: sinus rhythm Assessment and Plan Telemetry reviewed: Sinus rhythm 62. No events Sinus pauses * Cardiology is consulted for several episodes of sinus pauses noted on telemetry. Telemetry data is reviewed which shows overall sinus rhythm in 60s with several episodes of sinus pauses ranging in duration from 1 second to 2 seconds. No episodes of sinus pauses exceeding 3 seconds. * Continue to monitor on telemetry * Echocardiogram reviewed (12/31/2020): LVEF is 60 to 65%. LV SF is normal. Borderline LVH. Mild diastolic dysfunction. RV SF is normal. No evidence of thrombus on this study. Saline bubble contrast injection does not demonstrate PFO. Mild AR. RVSP is 21 mmHg. Hypokalemia * Potassium is being repleted per primary team. f/u BMP, magnesium in a.m. Hypertension * Continue current antihypertensive regimen of atenolol 50 mg daily, chlorthalidone 12.5 mg twice daily Acute on chronic right-sided weakness * CT and MRI brain are negative for acute process. Neurology is following. * Patient is awaiting placement in subacute rehab as recommended by PT DVT prophylaxis * Heparin SQ Patient is currently stable cardiac status. Recommend continued telemetry monitoring. Will follow This patient was seen in conjunction with Dr. Radha Borja who agrees with this assessment and plan of care - Patient Problems (1) Hypokalemia Current Visit: Yes Status: Acute (2) DVT prophylaxis Current Visit: Yes Status: Acute (3) Hypertension Current Visit: Yes Status: Chronic (4) Right arm weakness Current Visit: Yes Status: Acute
[2021-01-06] MEDS ORDERED: POTASSIUM CHLORIDE ER 20 MEQ TAB PO NR (12:45)
--- NOTE | 2021-01-06 14:41 | Progress Note ---
Assessment and Plan 80 years old female with past medical history of hypertension was brought to the emergency department with a chief complaint of right arm and leg weakness that started 5 days ago. In the emergency room initial CT scan of the head shows no acute intracranial abnormality Imaging studies including MRI and MRA of the head are negative for acute CVA. Neurology input noted likely functional impairment. Continue Lipitor 40mg daily. Possible underlying mild dementia. Recommended no driving. She is awaiting placement. Referrals have been sent to facilities. A/P --Right side weakness as per pt. > left since September -exam is suggestive of functional impairmet with no clear weakness is noted -CT brain ,MRI brain are unremarkable,MRA unremarkable -LDL#60 on Lipitor 40 mG -eCHO WITH ef#60-65% --Underlying mild dementia -TSH, Vitamin B12 wnl -No driving -PT therapy - needs rehab --Chronic debility Needs rehab --Right arm weakness Functional impairment. No CVA --Hypertension Hydralazine 10 mg IV every 6 hours as needed. We will monitor the blood pressure closely. We will continue the home medication --Hypokalemia: repleted --Sinus pauses Cardiology is consulted for several episodes of sinus pauses noted on telemetry and recommended conservative management. Telemetry data is reviewed which shows overall sinus rhythm in 60s with several episodes of sinus pauses ranging in duration from 1 second to 2 seconds. No episodes of sinus pauses exceeding 3 seconds. Continue to monitor on telemetry Echocardiogram reviewed (12/31/2020): LVEF is 60 to 65%. --DVT prophylaxis Heparin 5000 units subcu every 8 hours for DVT prophylaxis. Pepcid 20 mg IV twice daily for GI prophylaxis. --Patient is a full code Disposition - PT recommends subacute rehab. Awaiting placement Subjective Date of service: 01/06/21 Interval history: Patient seen and examined. Medical records and medication list reviewed. No acute event overnight noted by the RN. Patient denies any chest pain or difficulty breathing. Patient is tolerating diet. Discussed plan of care at bedside with patient. Patient was reported to have couple second pause on the telemetry by RN last night Discharge pending on placement Objective - Exam Narrative Exam: GENERAL: well-developed and well-nourished elderly white female lying on bed appeared to be in no discomfort. HEENT: Normocephalic. Atraumatic. No conjunctival congestion or icterus. Patient has moist mucous membranes. NECK: Supple. Trachea midline. CHEST/LUNGS: Clear to auscultated bilaterally, breathing nonlabored. No wheezes crackles or rhonchi. HEART/CARDIOVASCULAR: Regular in rate and rhythm. S1 and S2 positive. ABDOMEN: Abdomen is soft, nontender. Patient has normal bowel sounds. SKIN: There is no rash. Warm and dry. NEURO: Cranial nerves intact. Follows command. MUSCULOSKELETAL: No joint effusion or tenderness. EXTRIMITY: No edema, no cyanosis or clubbing. PSYCH: Cooperative. - Constitutional Vitals: Vital Signs - 12hr 01/06/21 01/06/21 01/06/21 05:03 10:39 10:43 Temperature 98.0 F Pulse Rate 56 L 65 Respiratory 16 Rate Blood Pressure 133/55 126/51 126/51 O2 Sat by Pulse 94 Oximetry 01/06/21 11:38 Temperature 97.8 F Pulse Rate 69 Respiratory 18 Rate Blood Pressure 109/49 O2 Sat by Pulse 93 Oximetry - Labs CBC & Chem 7: 01/02/21 07:44 01/07/21 06:53 Labs: Abnormal lab results 01/06/21 Range/Units 09:56 Potassium 3.3 L (3.6-5.0) mmol/L HEART Score - HEART Score Troponin: Troponin T 0.010 ng/mL (0.00-0.029) 12/31/20 05:27
[2021-01-06] MEDS: MONTELUKAST 10 MG TAB PO SCH (17:40)
[2021-01-07] MEDS: HEPARIN 5,000 UNIT/1 ML VIAL SUB-Q SCH (06:09)
[2021-01-07 07:25] LABS: Calcium 9.3 mg/dL (8.4-10.2)
--- NOTE | 2021-01-07 09:58 | Discharge Summary ---
Providers - Providers Date of Admission: 12/31/20 14:37 Date of discharge: 01/07/21 Attending physician: YOSELIN LI 12/31/20 02:03 Occupational Therapy Evaluate and Treat [CONS] Routine Comment: Reason For Exam: Neuro deficits Physical Therapy Evaluation and Treat [CONS] Routine Comment: Reason For Exam: Neuro deficits 12/31/20 06:54 Consult to Wound/ET Nurse [CONS] Routine Reason For Exam: wound eval 01/01/21 06:24 Consult to Physician [CONS] Routine Comment: Consulting Provider: VILLA CULLEN Physician Instructions: Reason For Exam: Acute CVA 01/01/21 12:07 Speech Therapy Evaluation and Treat [CONS] Urgent Reason For Exam: cva 01/06/21 09:46 Consult to Physician [CONS] Routine Comment: Consulting Provider: ANGIE MEDINA Physician Instructions: Reason For Exam: ectopic beats Primary care physician: [employer] Hospitalization Reason for admission: No here Condition: Fair Pertinent studies: Head CT, chest x-ray, brain MRI, head MRA, 2D echocardiogram. Hospital course: 80 years old female with past medical history of hypertension was brought to the emergency department with a chief complaint of right arm and leg weakness that started 5 days ago. In the emergency room initial CT scan of the head shows no acute intracranial abnormality Imaging studies including MRI and MRA of the head are negative for acute CVA. Neurology input noted likely functional impairment. Continue Lipitor 40mg daily. Possible underlying mild dementia. Recommended no driving. Cardiology was consulted for several episodes of sinus pauses noted on telemetry and recommended conservative management. Telemetry data is reviewed which shows overall sinus rhythm in 60s with several episodes of sinus pauses ranging in duration from 1 second to 2 seconds. No episodes of sinus pauses exceeding 3 seconds. Cardiology recommended continue to monitor on telemetry. Echocardiogram reviewed (12/31/2020): LVEF is 60 to 65%. PT recommended subacute rehab, patient will be discharged today to subacute rehab in stable condition. Disposition: [id number]/[place]-[id number] SNF [facility] C[facility] Final Discharge Diagnosis (Prints w/discharge instructions): --Right side weakness as per pt. > left since September: Functional impairment, No CVA. --Underlying mild dementia. --Chronic debility. --Hypertension. --Hypokalemia. --Sinus pauses Time spent for discharge: 34 minutes Core Measure Documentation - Palliative Care Palliative Care/ Comfort Measures: Not Applicable - Core Measures Any of the following diagnoses?: none Exam - Physical Exam Narrative exam: GENERAL: well-developed and well-nourished elderly white female lying on bed appeared to be in no discomfort. HEENT: Normocephalic. Atraumatic. No conjunctival congestion or icterus. Patient has moist mucous membranes. NECK: Supple. Trachea midline. CHEST/LUNGS: Clear to auscultated bilaterally, breathing nonlabored. No wheezes crackles or rhonchi. HEART/CARDIOVASCULAR: Regular in rate and rhythm. S1 and S2 positive. ABDOMEN: Abdomen is soft, nontender. Patient has normal bowel sounds. SKIN: There is no rash. Warm and dry. NEURO: Cranial nerves intact. Follows command. MUSCULOSKELETAL: No joint effusion or tenderness. EXTRIMITY: No edema, no cyanosis or clubbing. PSYCH: Cooperative. - Constitutional Vitals: Temp Pulse Resp BP Pulse Ox 98.7 F 66 18 134/61 96 01/06/21 21:35 01/06/21 22:00 01/06/21 21:35 01/06/21 21:35 01/06/21 22:00 Plan Activity: advance as tolerated, no driving until cleared by PCP Weight Bearing Status: Weight Bear as Tolerated Diet: low fat Special Instructions: record daily BP diary Additional Instructions: Patient care and management will be managed by director of medical education of the rehab facility following discharge. Follow up with: PRIMARY CARE, [Primary Care Provider] - 3-5 Days Prescriptions: Aspirin EC [Halfprin EC] 81 mg PO QDAY #30 tablet.
[2021-01-07 11:46] VITALS: BP 138/59
[2021-01-07] MEDS: atenoloL 50 MG TAB PO SCH (11:49)
[2021-01-07] MEDS: ASPIRIN 325 MG TAB PO SCH (11:50)
[2021-01-07] MEDS: FERROUS SULFATE 325 MG TAB PO SCH (11:50)
[2021-01-07] MEDS: PANTOPRAZOLE 20 MG TAB PO SCH (11:50)
[2021-01-07] MEDS: POTASSIUM CHLORIDE ER 10 MEQ TAB PO SCH (11:50)
[2021-01-07] MEDS: CHLORTHALIDONE 25 MG TAB PO SCH (11:53)
[2021-01-07] MEDS: FLUTICASONE PROPIONATE NASAL SPRAY 16 GM NS SCH (11:54)
--- NOTE | 2021-01-07 12:26 | Progress Note ---
Assessment and Plan Echo reviewed - EF 60-65%, borderline LVH, mild diastolic dysfunction, mild AR, no evidence of thrombus, negative bubble study. No further sinus pauses or additional arrhythmias noted on telemetry. Otherwise stable cardiac status. No objections to discharge from a Cardiology standpoint. Recommend follow-up with PCP within 1-2 weeks of discharge. Pt seen in conjunction with Dr. Darlyn Borja, who agrees with the assessment and plan of care. - Patient Problems (1) Right sided weakness Current Visit: Yes Status: Acute (2) Sinus pause Current Visit: Yes Status: Resolved (3) Hypokalemia Current Visit: Yes Status: Resolved (4) Hypertension Current Visit: Yes Status: Chronic Qualifiers: Hypertension type: essential hypertension Qualified Code(s): I10 - Essential (primary) hypertension (5) Dementia Current Visit: Yes Status: Chronic Subjective Date of service: 01/07/21 Principal diagnosis: R-Sided Weakness Interval history: No cardiac complaints. Tele reviewed - SR 60s, no events overnight. Objective Last Vital Signs Temp 98.2 F 01/07/21 11:29 Pulse 65 01/07/21 11:49 Resp 20 01/07/21 11:29 BP 138/59 01/07/21 11:49 Pulse Ox 93 01/07/21 11:29 - Physical Examination General: No Apparent Distress HEENT: Positive: EOMI, Normocephaly, Mucus Membranes Moist Neck: Positive: neck supple, trachea midline. Negative: JVD/HJR Cardiac: Positive: Reg Rate and Rhythm, S1/S2. Negative: Audible Murmur Lungs: Positive: clear to auscultation Neuro: Positive: Weakness (RUE & RLE) Abdomen: Positive: Soft. Negative: Tender Skin: Positive: Wound. Negative: Rash Musculoskeletal: No Fluid Collection Extremities: Present: upper extr. pulses, lower extr. pulses. Absent: edema - Labs and Meds Comprehensive Metabolic Panel 01/07/21 Range/Units 06:53 Sodium 134 L (137-145) mmol/L Potassium 3.8 (3.6-5.0) mmol/L Chloride 99.5 (98-107) mmol/L Carbon Dioxide 24 (22-30) mmol/L BUN 28 H (7-17) mg/dL Creatinine 1.0 (0.6-1.2) mg/dL Glucose 99 (65-100) mg/dL Calcium 9.3 (8.4-10.2) mg/dL - Imaging and Cardiology EKG: report reviewed, image reviewed Echo: report reviewed (12/31/2020 - EF 60-65%, borderline LVH, mild diastolic dysfunction, mild AR, no evidence of thrombus, negative bubble study.) - Telemetry EKG Rhythm: Sinus Rhythm - EKG Sinus rhythms and dysrhythmias: sinus rhythm
--- NOTE | 2021-01-14 10:48 | Electrocardiograph Report ---
[facility] Test Date: 2021-01-05 Test Time: 19:47:00 Pat Name: JACQUELINE BRIGHT Department: Room: A372 1 Gender: F [employer]: Darlyn [employer] : 1940 Requested By: YOSELIN LI Order Number: [id number] Reading MD: Baudilio Sunshine Measurements Intervals [place] Rate: 58 P: 29 UT: 176 QRS: -2 QRSD: 96 T: 8 QT: 429 QTc: 421 Interpretive Statements Sinus bradycardia Probable left atrial enlargement No previous ECG available for comparison Electronically Signed On 01-14-2021 10:47:40 EDT by Baudilio Sunshine
== END 2021-01-07 16:10 | DRG 641 ==
LOC: ED 20:10 → 3A 12-31 01:58 → OBSVTOIN 12-31 14:37 → UNDODISIN 01-07 17:03
PROVIDERS: ADMIT Hospitalist; ATTEND Internal Medicine
DX: E87.6 Hypokalemia (principal); R53.1 Weakness; I10 Essential (primary) hypertension; F03.90 Unspecified dementia, unspecified severity, without behavioral disturbance, psychotic disturbance, mood disturbance, and anxiety; H40.9 Unspecified glaucoma; G47.00 Insomnia, unspecified; R53.81 Other malaise; I45.5 Other specified heart block; Z20.822 Contact with and (suspected) exposure to COVID-19
CPT/HCPCS: 36415; 70450; 70544; 70551; 71045; 80048; 80053; 80061; 80076; 81001; 82607; 83735; 84100; 84132; 84443; 84484; 85025; 85610; 85730; 93005; 93306; 94640; G0378; A9270-GY; J1644; J3246; J3480; J7042; U0003